=== PATIENT | female | born 1955 | race Caucasian/White ===

== ENCOUNTER → 2020-04-29 13:17 | Outpatient (BNVA) | payer MEDICARE, OTHER, SELFPAY | PROVIDERS: Family Provider Nurse Practitioner; PCP Nurse Practitioner; Referring Provider Family Medicine; Visit Provider Podiatrist Foot & Ankle Surgery | DX: M79.671 Pain in right foot (principal) | CPT/HCPCS: 73630 ==

== ENCOUNTER 2021-05-20 15:39 | Outpatient (CLI) | payer MEDICARE, OTHER, SELFPAY ==
--- NOTE | 2021-05-20 15:44 | USCV_ITS ---
Yokasta Vazquez Age: 66 Gender: F : 1955 Exam Date: 05/20/2021 15:56 Ordering Phys: Niurka Vega DO Technologist: Exam Location: [facility] – [place], [place] Indication: CHEST PAIN BP: 150 / 80 HR: 82 Rhythm: Sinus Technical Quality: Adequate MEASUREMENTS (Male / Female) Normal Values 2D ECHO LV Diastolic Diameter PLAX 4.6 cm 4.2 - 5.9 / 3.9 - 5.3 cm LV Systolic Diameter PLAX 2.4 cm IVS Diastolic Thickness 0.8 cm 0.6 - 1.0 / 0.6 - 0.9 cm IVS Systolic Thickness 1.7 cm LVPW Diastolic Thickness 1.2 cm 0.6 - 1.0 / 0.6 - 0.9 cm LVPW Systolic Thickness 1.2 cm LVOT Diameter 2.0 cm LV Ejection Fraction 2D Teich 80.2 % LA Diameter 3.7 cm LA Width 3.3 cm LA Height 3.9 cm RA Width 3.0 cm RA Height 4.3 cm Aorta at Sinotubular Diameter 2.4 cm M-MODE LV Diastolic Diameter MM 5.1 cm 4.2 - 5.9 / 3.9 - 5.3 cm LV Systolic Diameter MM 2.7 cm LV Ejection Fraction MM Teich 77.7 % IVS Diastolic Thickness MM 1.2 cm 0.6 - 1.0 / 0.6 - 0.9 cm IVS Systolic Thickness MM 1.7 cm LVPW Diastolic Thickness MM 1.1 cm 0.6 - 1.0 / 0.6 - 0.9 cm LVPW Systolic Thickness MM 1.7 cm RV Diastolic Diameter MM 1.6 cm MV E Point Septal Separation 0.9 cm DOPPLER AV Peak Velocity 150.0 cm/s LVOT Peak Velocity 116.0 cm/s AV Area Cont Eq vti 2.4 cm squared AV Area Cont Eq pk 2.5 cm squared MV Area PHT 5.0 cm squared Mitral E to A Ratio 0.9 MV E' Velocity 42.5 cm/s Mitral E to MV E' Ratio 9.0 Mitral E to LV E' Lateral Ratio 8.8 Mitral E to LV E' Septal Ratio 9.2 TR Peak Velocity 131.3 cm/s TR Peak Gradient 6.9 mmHg TV Peak E Velocity 87.0 cm/s Right Atrial Pressure 3.0 mmHg Pulmonary Artery Systolic Pressu 9.9 mmHg FINDINGS Left Ventricle Normal left ventricular size, systolic function and wall thickness, with no regional wall motion abnormalities. Left ventricular ejection fraction is estimated at 65 %. Normal diastolic function. Right Ventricle Normal right ventricular size and systolic function. Right ventricular systolic pressure 9.9 mmHg. Right Atrium Normal right atrial size. Left Atrium Upper normal left atrial size. Mitral Valve Structurally normal mitral valve. No mitral valve stenosis. Trace mitral valve regurgitation. Aortic Valve Aortic valve not well visualized. No aortic valve stenosis. No aortic valve regurgitation. Tricuspid Valve Tricuspid valve not well visualized. Pulmonic Valve Pulmonic valve not well visualized. No pulmonary valve regurgitation. Pericardium No pericardial effusion. Aorta Normal size aortic root and proximal ascending aorta. Normal sized inferior vena cava. CONCLUSIONS 1. Normal left ventricular size, systolic function and wall thickness, with no regional wall motion abnormalities. Left ventricular ejection fraction is estimated at 65 %. Normal diastolic function. 2. Normal right ventricular size and systolic function. 3. No significant valvular abnormality. 4. Normal pulmonary artery pressure. 5. No prior similar studies to compare. Pao Castillo MD (Electronically Signed) Final Date: 20 May 2021 17:14 S
== END 2021-05-20 15:40 | disposition home or self-care (01) ==
LOC: US 15:42
PROVIDERS: PCP Family Medicine; Visit Provider Family Medicine
DX: R06.09 Other forms of dyspnea (principal); R07.9 Chest pain, unspecified
CPT/HCPCS: 93306

== ENCOUNTER 2022-03-25 10:00 | Outpatient (CLI) | payer MEDICARE, OTHER, SELFPAY ==
--- NOTE | 2022-03-25 10:05 | MM_ITS ---
WS: [id number] BILATERAL SCREENING DIGITAL TOMOSYNTHESIS MAMMOGRAM WITH CAD HISTORY: SCREENING COMPARISON: 03/18/2021, 02/26/2020 Bilateral CC and MLO views with tomosynthesis and synthetic mammography submitted. Computer aided det ection analyzed. Breast composition: There are scattered areas of fibroglandular density. No suspicious masses, microc alcifications or architectural distortion. Benign calcifications in each breast. MM/[id number] IMPRESSION: BI-RADS: 2-Benign FOLLOW UP: 1 Year Follow-up
== END 2022-03-25 10:01 | disposition home or self-care (01) ==
LOC: RAD 10:02
PROVIDERS: PCP Family Medicine; Visit Provider Family Medicine
DX: Z12.31 Encounter for screening mammogram for malignant neoplasm of breast (principal)
CPT/HCPCS: 77063; 77067

== ENCOUNTER → 2022-04-07 10:24 | Outpatient (BNVA) | payer MEDICARE, OTHER, SELFPAY | PROVIDERS: PCP Family Medicine; Visit Provider Nurse Practitioner Family | DX: M17.0 Bilateral primary osteoarthritis of knee (principal) | CPT/HCPCS: 73560; 73565; 99203; 99204 ==

== ENCOUNTER → 2022-06-18 09:33 | Outpatient (BNVA) | payer MEDICARE, OTHER, SELFPAY | PROVIDERS: PCP Family Medicine; Visit Provider Nurse Practitioner Family | DX: M17.0 Bilateral primary osteoarthritis of knee (principal) | CPT/HCPCS: 20610; 99213; J7327 ==

== ENCOUNTER 2022-12-28 11:17 | Observation (INO) | payer MEDICARE, OTHER, SELFPAY ==
[2022-12-23 09:42] VITALS: BMI 35.6
[2022-12-23 10:20] LABS: Basophils % 0.5 %; Eosinophils # 0.2 10^3/uL (0.0-0.8); Hematocrit 40.5 % (37.0-47.0); Hemoglobin 13.5 g/dL (11.5-15.3); Lymphocytes # 1.4 10^3/uL (0.8-4.8); Lymphocytes % 37.9 %; Mean Corpuscular HGB Conc 33.3 g/dL (30.0-36.0); Mean Platelet Volume 10.1 fL (7.4-10.4); Monocytes # 0.4 10^3/uL (0.2-0.9); Monocytes % 10.5 %; Neutrophils # 1.74 10^3/uL (1.8-7.7); Neutrophils % 46.8 %; Nucleated Red Blood Cells % 0 %; Platelet Count 252 10^3/cmm (130-400); Red Cell Distribution Width 13.2 % (12.1-15.1); White Blood Count 3.7 10^3/uL (4.0-10.0)
[2022-12-23 10:47] LABS: Anion Gap 14.9 (5-19); Blood Urea Nitrogen 12 mg/dL (8-23); Calcium 9.5 mg/dL (8.5-10.5); Carbon Dioxide 23 mmol/L (22-29); Chloride 105 mmol/L (98-107); Creatinine Clr Calc Pharmacy 70.4961; Glomerular Filtration Rate 83.5 mL/min (90-130); Glucose 95 mg/dL (65-115); Osmolality Calculated 288 mOsm/kg (285-295); Potassium 3.9 mmol/L (3.5-5.1); Sodium 139 mmol/L (136-145)
--- NOTE | 2022-12-24 09:15 | P.ANESASSM_ITS ---
Pre-Anesthetic Assessment Height/Weight: Height 1.57 m Weight 88.451 kg Operation Date: 12/28/22 11:05 Proposed Procedures p Laparoscopic Assist Vaginal Hysterectomy(Not Applicable) - Mehreen Batista MD s Anterior Repair(Not Applicable) - Mehreen Batista MD s Posterior Repair(Not Applicable) - Mehreen Batista MD s [Laparoscopic assisted vaginal hysterectomy, bilateral salpingo-oophorectomy 96590, anterior and posterior colporrhaphy 26637, possible sling 16430 ], N81.4(Not Applicable) - Mehreen Batista MD Familial anesthetic complications: Alpha-GAL Was Beta Devin taken within 24 hours: N/A Was Clonidine taken within 24 hours: N/A Social Alcohol (Daily) and No tobacco Exam alert, oriented x 3, clear to auscultation bilaterally and regular rate & rhythm Airway Submandibular: within normal limits Cervical ROM: within normal limits Mallampati: Class II Dentition: full Pulmonary Sleep Apnea CV/HEM Hypertension Metabolic Morbid Obesity [facility] [place] Osteoarthritis/DJD Anesthetic Plan ASA status: 3 Anesthesia: General Medications/Allergies Home Medications Medication Instructions Recorded Confirmed Last Taken Type CUSTOM ORTHOTICS MOLDED INSERTS #1 ea 04/29/20 12/23/22 Unknown Rx cetirizine 10 mg capsule (Zyrtec) 10 mg PO 04/29/20 12/23/22 1 Day Ago History ~12/22/22 diclofenac sodium 1 % topical gel 2 gm topical QID #100 grams 04/29/20 12/23/22 1 Day Ago Rx (Voltaren) ~12/22/22 telmisartan 80 mg tablet (Micardis) 80 mg PO DAILY 04/29/20 12/23/22 1 Day Ago History ~12/22/22 CPAP 10/04/22 12/23/22 Unknown History Allergies Allergy/AdvReac Type Severity Reaction Status Date / Time Beef Containing Products Allergy Severe ALGY-Anaphy Verified 12/23/22 09:37 laxis pork derived (porcine) Allergy Severe ALGY-Anaphy Verified 12/23/22 09:37 laxis [facility] Anesthesia Medical History History of allergic rhinitis History of hepatitis C treatment in 2007 Hypertension Hypertension Hypothyroidism Inflammatory arthritis Osteopenia Surgical History History of abdominal surgery History of cataract surgery History of hand surgery History of refractive surgery Hx of hemorrhoidectomy Hx of hernia repair Family History Other CAD (coronary artery disease) Hypertension Denies family history of Colon cancer Ovarian cancer Diabetes Hypercholesteremia Breast cancer Uterine cancer Thyroid disease Stroke Social History Substance/Drug Use: never Data Anesthesia 12/23/22 10:00 12/23/22 10:00 Short CBC 12/23/22 Range/Units 10:00 WBC 3.7 L (4.0-10.0) 10^3/uL Hgb 13.5 (11.5-15.3) g/dL Hct 40.5 (37.0-47.0) % MCV 90.0 (81-99) fl Plt Count 252 (130-400) 10^3/cmm Neut % (Auto) 46.8 % Neut # (Auto) 1.74 L (1.8-7.7) 10^3/uL BMP 12/23/22 10:00 Sodium 139 Potassium 3.9 Chloride 105 Carbon Dioxide 23 BUN 12 Creatinine 0.7 Glucose 95 Calcium 9.5 Blood Bank 12/23/22 10:00 Blood Type O Positive Rho(D) Type Positive Antibody Screen Negative Cardiac Studies: Echocardiogram 05/20/21
[2022-12-28] VITALS (14 sets, daily range): BP systolic 118–161; BP diastolic 68–86; PULSE 69–82; RESP 15–25; TEMP 36.1–36.9; O2SAT 90–98
[2022-12-28] MEDS: acetaminophen 1,000 MG/100 ML PIGGYBACK 400 MG IV (06:20)
[2022-12-28] MEDS: phenazopyridine 100 mg Tablet 200 MG PO ×3 (06:20→21:44)
[2022-12-28] MEDS: scopolamine 1.5 Patch 1 PATCH TRANSDERMA (06:21)
[2022-12-28] MEDS: sodium chloride 0.9% 1,000 ML 30 ML IV (06:21)
--- NOTE | 2022-12-28 06:45 | P.ANESUD_ITS ---
Pre-Anesthetic Update Pre-Anesthetic Assessment: Date of Surgery/Procedure: 12/28/22 Preop Rissa gnosis: uterine prolapse, rectocele, cystocele, stress incontinence Proposed Procedure: Operation Date: 12/28/22 07:00 Proposed Procedures p Laparoscopic Assist Vaginal Hysterectomy(Not Applicable) - Mehreen Batista MD s Anterior Repair(Not Applicable) - Mehreen Batista MD s Posterior Repair(Not Applicable) - Mehreen Batista MD s [Laparoscopic assisted vaginal hysterectomy, bilateral salpingo-oophorectomy 02982, anterior and posterior colporrhaphy 88818, possible sling 92977 ], N81.4(Not Applicable) - Mehreen Batista MD Any changes to Pre-Anesthetic Assessment?: No Last Intake: Intake Last Liquid Date 12/27/22 Last Liquid Time 20:00 Last Solid Date 12/27/22 Last Solid Time 18:00 Vitals: Temperature 97.5 F L 12/28/22 05:51 Temperature Source Temporal Artery S can 12/28/22 05:51 Pulse Rate 72 12/28/22 05:51 Pulse Rhythm Regular 12/28/22 06:16 Pulse Strength 3+ Normal 12/28/22 06:16 Respiratory Rate 18 12/28/22 05:51 Blood Pressure 161/86 12/28/22 05:51 Blood Pressure Dasia n 111 12/28/22 05:51 Pulse Oximetry 94 12/28/22 05:51 Oxygen Delivery Me thod Room Air, CPAP 12/28/22 06:16 Exam: Pre-Anes Outpt Exam: alert, oriented x 3, clear to auscultation bilaterally and regular rate & rhythm Cardiac Studies: Echocardiogram 05/20/21
[2022-12-28] MEDS: ceFAZolin 2,000 MG in sodium chloride 0.9% (plus) 50 ML 100 MG IV ×3 (07:01→23:07)
--- NOTE | 2022-12-28 07:01 | W.PM.OPSUD ---
Surgery/Procedure H&P Update DATE OF PROCEDURE: December 28, 2022 DATE H&P PERFORMED: 12/23/22 H&P UPDATE INFORMATION: I have reviewed H&P completed within last 30 days, I have examined patient prior to procedure and No changes to prior documentation PREOP DIAGNOSIS: uterine prolapse, rectocele, cystocele, stress incontinence PLANNED PROCEDURE: Operation Date: 12/28/22 07:00 Proposed Procedures p Laparoscopic Assist Vaginal Hysterectomy(Not Applicable) - Mehreen Batista MD s Anterior Repair(Not Applicable) - Mehreen Batista MD s Posterior Repair(Not Applicable) - Mehreen Batista MD s [Laparoscopic assisted vaginal hysterectomy, bilateral salpingo-oophorectomy 33762, anterior and posterior colporrhaphy 94757, possible sling 57361 ], N81.4(Not Applicable) - Mehreen Batista MD Related Problem List Diagnoses (1) Rectocele: (2) Cystocele: (3) Uterine prolapse:
[2022-12-28] MEDS: vasopressin 20 unit/mL INJ INJECTION (09:11)
[2022-12-28 09:44] LABS: Urine Appearance Clear (CLEAR); Urine Color Orange (Yellow)
[2022-12-28 09:45] LABS: Add Urine Microscopic? YES; Bilirubin Urine 1+ (Negative); Blood Urine Neg (Negative); Glucose Urine UA Norm (Normal); Ketones Urine Negative (Negative); Leukocyte Esterase Urine Negative (Negative); Nitrate Urine Positive (Negative); Protein Urine 2+ (Negative); Urobilinogen Urine 1 mg/dL (Negative); pH Urine 5 (5-7)
[2022-12-28 09:51] LABS: Bacteria Urine TRACE /hpf; Mucus Urine TRACE /hpf; RBC Urine 0-4 /hpf (0-2); Squamous Epithelial Cell Urine 0-4 /hpf (0-5); WBC Urine 0-4 /hpf (0-5)
[2022-12-28 09:52] LABS: Add Urine Culture? No
--- NOTE | 2022-12-28 10:47 | P.OP_ITS ---
Operative Report Date of procedure: December 28, 2022 Pre-op diagnosis: Preop Diagnosis uterine prolapse, rectocele, cystocele, stress incontinence Post-op diagnosis: same Post-op findings: Small uterus. Grade 1 cystocele. Grade 3 rectocele. Normal appearing tubes and cystic ovaries Procedure done: LAVH, BSO, posterior repair, cystoscopy Specimens removed/disposition: uterus, tubes, ovaries to pathology Surgeon: Mehreen Batista Anesthesia: General Estimated blood loss (mL): 50 IV fluids (mL): 1,400 Urine output (mL): 400 Complications: none Findings: grade 3 uterine prolapse, grade 1 cystocele, grade 3 rectocele. Condition: stable Disposition: PACU Procedure: The patient was taken to the operating room where general anesthesia was administered and found to be adequate. She was prepped and draped in the normal sterile fashion in the dorsal lithotomy position in [facility]. A Delacruz catheter was placed. A weighted speculum was placed into the vagina and the anterior lip of the cervix was grasped with a single tooth tenaculum. The Zumi uterine manipulator was placed. The weighted speculum was removed. The gloves were changed and attention was turned to the abdomen. A 5 mm Supraumbilical incision was made. Using a 5 mm port with the camera, the port was placed into the abdomen. The abdomen was insufflated. Two low, lateral 5 mm ports were placed on the left and right under direct visualization from the camera. The right tube was grasped and elevated. The ureter was identified and out of range from the cautery. Using the laparoscopic cautery, the infundibulopelvic ligament was cauterized near the ovary. The broad ligament was then cauterized inferior to the tube to the cornua. This was performed the same way on the left. The round ligaments were then ligated bilaterally. Attention was then turned to the vaginal portion of the procedure. The weighted speculum was placed into the vagina. The zumi manipulator was removed. The single tooth tenaculum was removed and replaced with the cyril's tenaculum. 10 mL of dilute Pitressin was injected at the vesicovaginal junction. A circumferential incision was made at the vesicovaginal junction and the vaginal mucosa reflected cephalad. The posterior peritoneum was entered sharply with the Metzenbaum scissors and the long weighted speculum replaced. Using the Asha clamps the uterosacral ligaments were clamped cut and suture- ligated. The anterior peritoneum was entered sharply with the metzenbaum scissors. Then sequentially the uterine arteries and cardinal ligaments were clamped cut and suture-ligated. A single-tooth tenaculum was used to deliver the uterus. The remaining segement of the utero-ovarian ligaments were clamped cut and suture-ligated bilaterally and the specimen was removed. There was good hemostasis with only mild bleeding from the cuff. The peritoneum was closed with a pursestring using 2-0 Vicryl. The vaginal cuff was closed with 0 Vicryl in a running locked pattern incorporating the uterosacral ligaments into the lateral aspects of the vaginal cuff. An allis clamp was placed in the midline of the vaginal mucosa, approximately 2 cm posterior to the cuff. A second allis clamp was placed in the midline of the vaginal mucosa, approximately 3 cm from the introitus. An incision was made in the midline from clamp to clamp. The vaginal mucosa was clamped laterally and the rectocele dissected off of the rectovaginal fascia. The rectocele was packed away and the rectovaginal fascia brought together in the midline with figure of 8 interrupted sutures of O-Vicryl. The packing was removed and the excess vaginal tissue trimmed. The incision was repaired with 0-Vicryl in a running fashion. Attention was then turned to the perineorrhphy. Allis clamps were placed on the posterior fourchette. A 3 cm wedge of the fourchette was removed. This was repaired in the usual fashion with O-vicryl. The Delarcuz catheter was removed and the cystoscope advanced into the bladder. The patient was given pyridium in pre-op and bilateral spill was noted. There were no injuries or deficits noted in the bladder. The cystoscope was removed and the Delacruz was replaced. Vaginal packing was placed for good hemostasis. The gloves and gowns were changed and attention was turned to the abdomen. The ports were closed with 2-0 monocryl with skin glue. The patient tolerated the procedure well. Sponge lap and needle counts were correct x3. She was taken to the recovery room in stable condition.
[2022-12-28] MEDS: acetaminophen 325 mg Tablet 650 MG PO (11:41)
[2022-12-28] MEDS: dextrose 5%-lactated ringers 1,000 ML 125 ML IV ×2 (11:42→21:43)
--- NOTE | 2022-12-28 13:58 | ANE.PACU2 ---
Inpatient post-anesthesia follow up: Airway intact: Yes Vital signs: Temperature 97.8 F Pulse Rate 74 Respiratory Rate 15 Blood Pressure 118/68 Pulse Oximetry 90 Oxygen Delivery Me thod Nasal Cannula Oxygen Flow Rate 2 Fraction of Inspir ed Oxygen Hydration adequate: Yes Nausea and vomiting: No Pain level: 1 Mental status: Baseline
[2022-12-28] MEDS: HYDROcodone-acetaminophen 5-325 mg Tablet PO ×2 (14:58→23:03)
[2022-12-28] MEDS: simethicone 80 mg Chew PO (21:44)
[2022-12-28] MEDS: cetylpyridinium Lozenge 1 EACH MUCOUS MEM (23:03)
[2022-12-29 05:00] VITALS: BP 108/58; PULSE 74; RESP 18; TEMP 36.9; O2SAT 97
--- NOTE | 2022-12-29 05:51 | PC.NURSE ---
Vaginal packing removed.
[2022-12-29 05:59] LABS: Hematocrit 36.5 % (37.0-47.0); Hemoglobin 11.8 g/dL (11.5-15.3); Mean Corpuscular HGB Conc 32.3 g/dL (30.0-36.0); Mean Corpuscular Hemoglobin 29.4 pg (28.0-34.0); Mean Platelet Volume 10.2 fL (7.4-10.4); Platelet Count 215 10^3/cmm (130-400); Red Blood Count 4.01 10^6/uL (4.1-5.3); Red Cell Distribution Width 13.3 % (12.1-15.1); White Blood Count 7.6 10^3/uL (4.0-10.0)
--- NOTE | 2022-12-29 09:39 | PM.DCS ---
Discharge Providers Date of Admission: 12/28/22 11:17 Date of Discharge: December 29, 2022 Attending Provider at Admission: Mehreen Batista MD Attending Provider at Discharge: Mehreen Batista MD Primary Care Provider: Niurka Vega DO Diagnoses at Discharge Discharge Diagnosis (1) Rectocele: Status: Acute (2) Cystocele: Status: Acute (3) Uterine prolapse: Status: Acute Hospital Course Hospital Course The patient was admitted for surgery. She did well postoperatively and was ready for discharge on day #1. Physical Exam Narrative: The patient is doing well this morning. She has had her catheter and packing removed. Her pain is well controlled. She is tolerating a regular diet. Const: COMMON NORMALS: no acute distress, patient oriented x3, no limitations, alert and well nourished GENERAL APPEARANCE: cooperative, comfortable, well kempt and well developed ORIENTATION/CONSCIOUSNESS: Yes awake, Yes oriented to person, Yes oriented to place and Yes oriented to time Resp: COMMON NORMALS: normal respiratory effort EFFORT & INSPECTION: Yes able to speak in complete sentences GI: COMMON NORMALS: Soft to palpation and non-tender PALPATION: Yes Soft to palpation Extremity: COMMON NORMALS: no calf tenderness Neuro: COMMON NORMALS: patient oriented x3 SENSORIUM/ORIENTATION: Yes alert, Yes oriented to person, Yes oriented to place and Yes oriented to time Psych: APPEARANCE: Yes well kempt Urinary Catheter Management: Delacruz: Cath Placed During This Visit: yes, but has since been removed by the nurse Reason for Continuing Indwelling Catheter: Decision to DC Catheter Urinary Catheter Date of Insertion: 12/28/22 Urinary Catheter Time of Insertion: 08:00 Date Urinary Catheter Removed: 12/29/22 Time Urinary Catheter Discontinued: 05:40 Discharge Data Studies Completed and Pending Pending at discharge Category Date Time Status Pathology: Surgical [PTH] Routine Pth 12/28/22 13:22 Received Laboratory Results WBC 7.6 10^3/uL (4.0-10.0) 12/29/22 05:45 RBC 4.01 10^6/uL (4.1-5.3) L 12/29/22 05:45 Hgb 11.8 g/dL (11.5-15.3) 12/29/22 05:45 Hct 36.5 % (37.0-47.0) L 12/29/22 05:45 MCV 91.0 fl (81-99) 12/29/22 05:45 MCH 29.4 pg (28.0-34.0) 12/29/22 05:45 MCHC 32.3 g/dL (30.0-36.0) 12/29/22 05:45 RDW 13.3 % (12.1-15.1) 12/29/22 05:45 Plt Count 215 10^3/cmm (130-400) 12/29/22 05:45 MPV 10.2 fL (7.4-10.4) 12/29/22 05:45 Neut % (Auto) 46.8 % 12/23/22 10:00 Lymph % (Auto) 37.9 % 12/23/22 10:00 [place] % (Auto) 10.5 % 12/23/22 10:00 Eos % (Auto) 4.0 % 12/23/22 10:00 Baso % (Auto) 0.5 % 12/23/22 10:00 Neut # (Auto) 1.74 10^3/uL (1.8-7.7) L 12/23/22 10:00 Lymph # (Auto) 1.4 10^3/uL (0.8-4.8) 12/23/22 10:00 [place] # (Auto) 0.4 10^3/uL (0.2-0.9) 12/23/22 10:00 Eos # (Auto) 0.2 10^3/uL (0.0-0.8) 12/23/22 10:00 Baso # (Auto) 0.0 10^3/uL (0.0-0.1) 12/23/22 10:00 Nucleated RBC % (auto) 0 % 12/23/22 10:00 Nucleated RBCs # 0.0 /100WBC 12/23/22 10:00 Sodium 139 mmol/L (136-145) 12/23/22 10:00 Potassium 3.9 mmol/L (3.5-5.1) 12/23/22 10:00 Chloride 105 mmol/L (98-107) 12/23/22 10:00 Carbon Dioxide 23 mmol/L (22-29) 12/23/22 10:00 Anion Gap 14.9 (5-19) 12/23/22 10:00 BUN 12 mg/dL (8-23) 12/23/22 10:00 Creatinine 0.7 mg/dL (0.5-0.9) 12/23/22 10:00 GFR Calculation 83.5 mL/min (90-130) L 12/23/22 10:00 Glucose 95 mg/dL (65-115) 12/23/22 10:00 Calculated Osmolality 288 mOsm/kg (285-295) 12/23/22 10:00 Calcium 9.5 mg/dL (8.5-10.5) 12/23/22 10:00 Urine Color [place] (Yellow) 12/28/22 08:01 Urine Appearance Clear (CLEAR) 12/28/22 08:01 Urine pH 5 (5-7) 12/28/22 08:01 Ur Specific [place] 1.020 (1.005-1.030) 12/28/22 08:01 Urine Protein 2+ (Negative) H 12/28/22 08:01 Urine Glucose (UA) Norm (Normal) 12/28/22 08:01 Urine Ketones Negative (Negative) 12/28/22 08:01 Urine Blood Neg (Negative) 12/28/22 08:01 Urine Nitrate Positive (Negative) H 12/28/22 08:01 Urine Bilirubin 1+ (Negative) H 12/28/22 08:01 Urine Urobilinogen 1 mg/dL (Negative) H 12/28/22 08:01 Ur Leukocyte Esterase Negative (Negative) 12/28/22 08:01 Urine RBC 0-4 /hpf (0-2) H 12/28/22 08:01 Urine WBC 0-4 /hpf (0-5) H 12/28/22 08:01 Ur Squamous Epith Cells 0-4 /hpf (0-5) H 12/28/22 08:01 Amorphous Sediment Not Reportable 12/28/22 08:01 Urine Bacteria Trace /hpf (NONE) 12/28/22 08:01 Urine Mucus Trace /hpf 12/28/22 08:01 Blood Type O Positive 12/28/22 06:19 Rho(D) Type Positive 12/28/22 06:19 Antibody Screen Negative 12/28/22 06:19 Vitals Last Vital Signs Temp 98.4 F 12/29/22 05:00 Pulse 74 12/29/22 05:00 Resp 18 12/29/22 05:00 BP 108/58 12/29/22 05:00 Pulse Ox 97 12/29/22 05:00 O2 Del Method Room Air 12/29/22 05:00 O2 Flow Rate 2 12/28/22 16:35 Discharge Plan Discharge Patient Disposition: Home Condition: Stable Prescriptions: New ibuprofen 800 mg Tablet 800 mg PO Q8H Qty: 30 0RF hydrocodone-acetaminophen 5-325 mg Tablet 1 tab PO Q4H PRN (Reason: Moderate To Severe Pain) Qty: 30 0RF Colace 100 mg capsule 100 mg PO BID Qty: 60 0RF Continued telmisartan [Micardis] 80 mg tablet 80 mg PO DAILY Zyrtec 10 mg capsule 10 mg PO DAILY (DME) CUSTOM ORTHOTICS MOLDED INSERTS See Rx Instructions .Route .MEDSUPPLY Qty: 1 0RF Rx Instructions: As directed diclofenac sodium [Voltaren] 1 % gel 2 gm TOPICAL QID Qty: 100 0RF Rx Instructions: apply to both feet daily (DME) CPAP Device See Rx Instructions .Route Rx Instructions: As directed Discharge Orders: Discharge Order (Routine); Ordered 12/29/22 Ordered By: Mehreen Batista Referrals: Mehreen Batista MD [Physician] - 01/03/23 8:45 am (Your 6 week post operative appointment with Dr. Batista victor m be February 07, 2023 at 11:15 a.m.) Patient Instructions: Hydrocodone/Acetaminophen (By mouth), Laparoscopic Hysterectomy (GEN), OB Abdominal Surgery - [facility], OB Discharge Report, OB Laproscopic Surgery - C, OB Food/Drug Interaction Guide, Opioid Safety Discharge Attestations Time Spent in Discharge Care*: less than 30 min Quality Metrics Clinical Quality Measures [ No reported AMI, CVA or VTE this stay] Coding Level of Care Code Acute Code for Chg Fwd Diagnoses Rectocele N81.6 Cystocele Uterine prolapse N81.4
[2022-12-29 10:00] VITALS: BP 112/72; PULSE 70; RESP 16; TEMP 36.7; O2SAT 97
[2022-12-29 10:09] VITALS: BP 112/72; PULSE 70; RESP 16; TEMP 36.7; O2SAT 97
== END 2022-12-29 10:10 | disposition home or self-care (01) ==
LOC: OBGYN 11:17
PROVIDERS: Admitting Provider Obstetrics & Gynecology; PCP Family Medicine; Visit Provider Obstetrics & Gynecology
PROC: 0UT9FZZ Resection of Uterus, Via Natural or Artificial Opening With Percutaneous Endoscopic Assistance (ICD-10-PCS; CPT 57260; principal; 2022-12-28 07:00)
PROC: 0JQC0ZZ Repair Pelvic Region Subcutaneous Tissue and Fascia, Open Approach (ICD-10-PCS; CPT 57240; 2022-12-28 07:00)
PROC: (CPT 57250; 2022-12-28 07:00)
PROC: (CPT 57288; 2022-12-28 07:00)
PROC: 0TJB8ZZ Inspection of Bladder, Via Natural or Artificial Opening Endoscopic (ICD-10-PCS; CPT 52000; 2022-12-28 07:00)
DX: N81.4 Uterovaginal prolapse, unspecified (principal); N81.6 Rectocele; N39.3 Stress incontinence (female) (male); G47.30 Sleep apnea, unspecified; E66.01 Morbid (severe) obesity due to excess calories; Z68.35 Body mass index [BMI] 35.0-35.9, adult; I10 Essential (primary) hypertension; E03.9 Hypothyroidism, unspecified
CPT/HCPCS: 57260; 58552; 36415; 80048; 81001; 85025; 85027; 86850; 86900; 87086; 88305; G0378; J0131; J0690; J1100; J1940; J2370; J2405; J2704; J3010; J3490; J7030; J7121

== ENCOUNTER → 2023-02-07 08:42 | Outpatient (BNVA) | payer MEDICARE, OTHER, SELFPAY | PROVIDERS: PCP Family Medicine; Visit Provider Nurse Practitioner Family | DX: M17.0 Bilateral primary osteoarthritis of knee (principal) | CPT/HCPCS: 20610; 99213; J7327 ==

== ENCOUNTER → 2023-02-14 07:58 | Outpatient (BNVA) | payer MEDICARE, OTHER, SELFPAY | PROVIDERS: PCP Family Medicine; Visit Provider Podiatrist Foot & Ankle Surgery | DX: M19.072 Primary osteoarthritis, left ankle and foot; M19.071 Primary osteoarthritis, right ankle and foot; M21.611 Bunion of right foot; M21.41 Flat foot [pes planus] (acquired), right foot; M21.42 Flat foot [pes planus] (acquired), left foot; M20.40 Other hammer toe(s) (acquired), unspecified foot | CPT/HCPCS: 73630; 99214 ==

== ENCOUNTER 2023-04-04 10:58 | Outpatient (CLI) | payer MEDICARE, OTHER, SELFPAY ==
--- NOTE | 2023-04-04 11:34 | MM_ITS ---
WS: [id number] BILATERAL SCREENING DIGITAL TOMOSYNTHESIS MAMMOGRAM WITH CAD HISTORY: SCREEN COMPARISON: 03/25/2022 and 03/18/2021 and 02/26/2020 Bilateral CC and MLO views with tomosynthesis and synthetic mammography submitted. Computer aided det ection analyzed. Breast composition: There are scattered areas of fibroglandular density. No suspicious masses, microc alcifications or architectural distortion. Benign scattered calcifications in each breast. IMPRESSION: MM/[place] [id number] BI-RADS: 2-Benign FOLLOW UP: 1 Year Follow-up
== END 2023-04-04 10:59 | disposition home or self-care (01) ==
PROVIDERS: PCP Family Medicine; Visit Provider Family Medicine
DX: Z12.31 Encounter for screening mammogram for malignant neoplasm of breast (principal)
CPT/HCPCS: 77063; 77067

== ENCOUNTER → 2023-04-12 10:20 | Outpatient (BNVA) | payer MEDICARE, OTHER, SELFPAY | PROVIDERS: PCP Family Medicine; Visit Provider Internal Medicine Cardiovascular Disease | DX: I48.92 Unspecified atrial flutter; R06.02 Shortness of breath; R00.2 Palpitations; Z99.89 Dependence on other enabling machines and devices; M17.0 Bilateral primary osteoarthritis of knee; E03.9 Hypothyroidism, unspecified; I10 Essential (primary) hypertension; R94.31 Abnormal electrocardiogram [ECG] [EKG] | CPT/HCPCS: 93005; 99204 ==

== ENCOUNTER → 2023-05-05 08:41 | Outpatient (BNVA) | payer MEDICARE, OTHER, SELFPAY | PROVIDERS: PCP Family Medicine; Visit Provider Internal Medicine Cardiovascular Disease | DX: R00.2 Palpitations (principal); I47.19 Other supraventricular tachycardia; I49.3 Ventricular premature depolarization; I49.1 Atrial premature depolarization | CPT/HCPCS: 93242 ==

== ENCOUNTER 2023-05-12 12:31 | Outpatient (CLI) | payer MEDICARE, OTHER, SELFPAY ==
--- NOTE | 2023-05-12 | ECG_ITS ---
[facility] Test Date: 2023-05-12 Pat Name: Yokasta Vazquez Department: Room: Gender: Female Data Conversion Operator: Martha Blas : 1955 Requested By: Pao Castillo Order Number: [id number] Kirit MD: Clifton Gotti M.D. Interpretive Statements NAME OF STUDY: TREADMILL STRESS ECHOCARDIOGRAM INDICATION: Exertional Fatigue, PROCEDURE: The baseline electrocardiogram showed normal sinus rhythm with normal ST-Ts. At the baseline, the patient's blood pressure was 171/77 mm Hg with a heart rate of 82. The patient exercised for 4 minutes and 37 seconds on a standard Matt protocol. Patient attained a maximum heart rate of 139 beats per minute(91% of the maximum predicted heart rate) with a blood pressure at the peak exercise of 204/78 mm Hg. The EKG at the peak exercise revealed no significant changes. Patient did not have any chest pain or any significant arrhythmis with the exercise Echocardiographic pictures were taken at the baseline, peak exercise and During the recovery phase. Blood pressure at the end of the recovery phase was 151/55 mm Hg with a heart rate of 81 per minute. CONCLUSION: 1. No significant EKG changes with the treadmill exercise 2. No exercise-induced chest pain or cardiac arrhythmia 3. Slightly impaired exercise tolerance, attained a maximum of 7.0 METs; maximum VO2 was 24.5 4. Hypertensive response to exercise 5. For the echocardiogram response to exercise, please refer to the separate report Electronically Signed On 05-14-2023 13:21:01 [employer] by Clifton Gotti M.D. [email or web address]
--- NOTE | 2023-05-12 12:54 | USCV_ITS ---
Yokasta Vazquez Age: 68 Gender: F : 1955 Exam Date: 05/12/2023 13:27 Ordering Phys: Pao Castillo MD ([email or web address]) Technologist: Dean Tian Exam Location: [facility] [place] Indication: Exertional Fatigue Rhythm: Sinus Patient History: Htn Cardiac Medications: Telemisartan 80mg Daily Medications in past 24 hours: Yes Contrast: Stress Results Protocol: Matt Total dose(mL): Exercise Duration (min:sec): 4:37 METS: 7 Resting HR: 75 Resting BP: 171 / 75 Peak HR: 139 Peak BP: 204 / 80 Max Predicted HR: 152 91 % Max Predicted HR Target HR: 129 Double Product: 37859 Stress Summary: The patient's target heart rate was achieved BP Response: Normal Reason for Termination: Reached target heart rate or work-load Cardiac Symptoms: Short of Breath ECG Analysis Resting ECG: Please refer to the separate report Stress ECG: Please refer to the separate report Arrhythmia: Please refer to the separate report MEASUREMENTS (Male/Female) Normal Values FINDINGS The baseline echocardiogram revealed normal LV size and ejection fraction. The left atrial size appears to be normal. No pericardial effusion. Segmental wall motion analysis revealed no gross wall motion normalities. With the peak exercise, there was good augmentation of all the segments with no exercise-induced wall motion abnormalities During the recovery phase, the segmental wall motion returned to the baseline CONCLUSIONS 1. Normal echocardiographic response to exercise 2. Low probability for coronary ischemia, based on the above finding 3. See separate report for the EKG response to exercise Dr Clifton Gotti MD FACC (Electronically Signed) Final Date: 13 May 2023 11:14 S
[2023-05-12 12:58] VITALS: BMI 35.1
[2023-05-12 13:43] VITALS: BP 151/55; PULSE 84
== END 2023-05-12 12:32 | disposition home or self-care (01) ==
LOC: CDL 12:32
PROVIDERS: PCP Family Medicine; Visit Provider Internal Medicine Cardiovascular Disease
DX: R06.02 Shortness of breath (principal); I10 Essential (primary) hypertension
CPT/HCPCS: 93017; 93350

== ENCOUNTER → 2023-06-06 07:41 | Outpatient (BNVA) | payer MEDICARE, OTHER, SELFPAY | PROVIDERS: PCP Family Medicine; Visit Provider Podiatrist Foot & Ankle Surgery | DX: M21.41 Flat foot [pes planus] (acquired), right foot; M21.42 Flat foot [pes planus] (acquired), left foot; M20.41 Other hammer toe(s) (acquired), right foot; M19.071 Primary osteoarthritis, right ankle and foot | CPT/HCPCS: 99214 ==

== ENCOUNTER 2023-06-10 07:36 | Day surgery (SDC) | payer MEDICARE, OTHER, SELFPAY ==
[2023-06-10] VITALS (11 sets, daily range): BP systolic 148–191; BP diastolic 71–111; PULSE 78–94; RESP 12–18; TEMP 36.1–36.8; O2SAT 94–100; BMI 35.1
--- NOTE | 2023-06-10 | XR_ITS ---
WS: [id number] Exam: XR foot RT 2V [id number] Date/Time of Exam: 06/10/2023 12:00 AM Reason For Exam: Lapidus bunionectomy Intraoperative AP and lateral images of the RIGHT midfoot are submitted. Plate and screw fixation of the first and second metatarsal cuneiform joints noted. Images obtained for intraoperative visualizat ion.
[2023-06-10] MEDS: sodium chloride 0.9% 1,000 ML 30 ML IV (08:20)
[2023-06-10] MEDS: CELEcoxib 200 mg Capsule 400 MG PO (08:20)
[2023-06-10] MEDS: gabapentin 300 mg Capsule PO (08:26)
--- NOTE | 2023-06-10 09:12 | ANES.PREANE2 ---
Pre-Anesthetic Assessment Height/Weight: Height 1.57 m Weight 87.09 kg Temp Pulse Resp BP Pulse Ox O2 Del Method 98.3 F 86 16 148/86 98 Room Air 06/10/23 08:02 06/10/23 08:02 06/10/23 08:02 06/10/23 08:02 06/10/23 08:02 06/10/23 08:07 Preop Diagnosis: Right pes planus and midfoot arthritis, left bunion. Operation Date: 06/10/23 09:30 Proposed Procedures p Right Lapidus bunionectomy [id number],M21.611,M19.079,M21.41, M79.673(Right) - ZAHRAA Chavarria Right second tarsometatarsal joint fusion(Right) - ZAHRAA Chavarria Isai Osteotomy(Right) - Albert Queen DPM Familial anesthetic complications: H/O difficult intubation Was Beta Devin taken within 24 hours: N/A Was Clonidine taken within 24 hours: N/A Last intake: Intake Last Liquid Date 06/09/23 Last Liquid Time 22:00 Last Solid Date 06/09/23 Last Solid Time 18:30 Social No alcohol and No tobacco Exam alert, oriented x 3, clear to auscultation bilaterally and regular rate & rhythm Airway Submandibular: within normal limits Cervical ROM: within normal limits Mallampati: Class II Dentition: full Pulmonary Chronic Obstructive Pulmonary Disease CV/HEM Hypertension Hepatic Hepatitis (C) Metabolic Thyroid Disease Anesthetic Plan ASA status: 3 Anesthesia: MAC Medications/Allergies Home Medications Medication Instructions Recorded Confirmed Last Taken Type CUSTOM ORTHOTICS MOLDED INSERTS #1 ea 04/29/20 06/06/23 Unknown Rx cetirizine 10 mg capsule (Zyrtec) 10 mg PO DAILY 04/29/20 06/09/23 06/09/23 History telmisartan 80 mg tablet (Micardis) 80 mg PO DAILY 04/29/20 06/09/23 06/09/23 History CPAP 10/04/22 06/06/23 Unknown History Allergies Allergy/AdvReac Type Severity Reaction Status Date / Time Beef Containing Products Allergy Severe ALGY-Anaphy Verified 06/10/23 08:30 laxis pork derived (porcine) Allergy Severe ALGY-Anaphy Verified 06/10/23 08:30 laxis Alpha-Gal Allergy Unknown Unknown Verified 06/10/23 08:30 (Jzflpoqtu-Ycadj-2,3-Gala Current Medications Generic Name Dose Route Start Last Admin Trade Name Juanito PRN Reason Stop Dose Admin Sodium Chloride 1,000 mls @ 30 mls/hr 06/10/23 08:00 06/10/23 08:20 Sodium Chloride 0.9% IV 06/11/23 07:59 30 mls/hr .Q24H PETRONA Administration PFSH Anesthesia Medical History (Updated 06/10/23 @ 09:12 by Edwar Kirkland) Difficult airway for intubation Rectocele Cystocele Uterine prolapse Osteopenia Hypertension History of allergic rhinitis History of hepatitis C treatment in 2007 Hypertension Hypothyroidism Inflammatory arthritis Surgical History History of abdominal surgery History of cataract surgery History of hand surgery Hx of hernia repair Hx of hemorrhoidectomy History of refractive surgery Family History Other CAD (coronary artery disease) Hypertension Denies family history of Colon cancer Ovarian cancer Diabetes Hypercholesteremia Breast cancer Uterine cancer Thyroid disease Stroke Social History Substance/Drug Use: never Data Anesthesia Cardiac Studies: Echocardiogram 05/20/21 Stress Echocardiogram 05/12/23
--- NOTE | 2023-06-10 11:02 | W.PM.OPSUD ---
Surgery/Procedure H&P Update DATE OF PROCEDURE: June 10, 2023 DATE H&P PERFORMED: 06/06/23 H&P UPDATE INFORMATION: I have reviewed H&P completed within last 30 days, I have examined patient prior to procedure, No changes to prior documentation and H[place] in [facility] [place] date indicated PREOP DIAGNOSIS: Right pes planus and midfoot arthritis, left bunion. PRIMARY INDICATION FOR PROCEDURE: Right bunion. Right midfoot arthritis, right hallux valgus, right foot pain PLANNED PROCEDURE: Operation Date: 06/10/23 09:30 Proposed Procedures p Right Lapidus bunionectomy [id number],M21.611,M19.079,M21.41, M79.673(Right) - ZAHRAA Chavarria Right second tarsometatarsal joint fusion(Right) - ZAHRAA Chavarria Isai Osteotomy(Right) - Albert Queen DPM
[2023-06-10] MEDS: ceFAZolin 2,000 MG in sodium chloride 0.9% (plus) 50 ML 100 MG IV (11:29)
[2023-06-10] MEDS: lidocaine 2% INJ 20 mL (11:50)
[2023-06-10] MEDS: BUPivacaine 0.5% INJ 30 mL (11:50)
--- NOTE | 2023-06-10 12:59 | P.BOP_ITS ---
Date of Procedure: 06/10/23 Surgeon: Albert Queen DPM Foreign Car Mechanic(s): Anisa Cuevas Procedure(s) performed: Right Lapidus and second tarsometatarsal joint fusion all right foot. Right silver bunionectomy with lateral release. Findings of the procedure(s): None Estimated blood loss: 5 mL Specimen(s) removed: None Post-operative diagnosis: Right bunion. Right second tarsometatarsal joint Art hritis No complications with surgery or anesthesia.
--- NOTE | 2023-06-10 13:01 | PM.OP ---
Operative Report Date of procedure: June 10, 2023 Pre-op diagnosis: Right bunion Right midfoot arthritis Right hallux valgus Right foot pain Post-op diagnosis: Same Procedure done: Right Lapidus bunionectomy. CPT code 95009 Right second tarsometatarsal joint fusion. CPT code 63015 Implants: [place] Lapidus plate, [place] straight slanted plate 4 mm homerun screw 3.5 millimeter screws 2.7 millimeter screws 3-0 Vicryl, 4-0 Vicryl, 4-0 nylon Specimens removed/disposition: None Pathology: None Surgeon: Albert Queen DPM Molder Offbearer: See intraoperative documentation Estimated blood loss: 5 mL see intraoperative documentation IV fluids: None Urine output: None Complications: None Brief History: Patient examined and evaluated, findings and treatment options discussed with patient at length. She has a complaint of a painful bunion to the right foot. X-ray right foot 3 view shows increased first intermetatarsal angle, this was taken at today's visit. Also hallux valgus appreciated. 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 She has exhausted conservative measures consisting of activity modifications, supportive shoes, wide accommodative shoes, topical and oral anti-inflammatories as well as orthotics and daily stretching, spacers and padding. Discussed Lapidus bunionectomy, possible Isai and second tarsometatarsal joint fusion. She would like to have this scheduled for June 10, 2023 we will follow-up for preoperative consultation with her early June with plans for surgical intervention on June 10, 2023. I reviewed at length with the patient, the risks, potential complications, benefits, alternatives, expectations, and typical outcomes associated with the surgery. The risks and potential complications were explained in detail, including but not limited to infection, wound dehiscence or soft tissue complications, bleeding and hematoma, chronic edema, neuritis or nerve damage producing numbness or chronic pain, CRPS, failure to relieve pain or worsening pain, thick / painful / unsightly scar, limited motion / stiffness, malposition, delayed union, malunion, or nonunion, fracture, reaction to implants, anesthetic complications, venous thromboembolism, and deformity recurrence. I discussed the notion of no regrets with the patient as it pertains to complications and outcomes. The patient seemed to understand the nature of the proposed care and required convalescence. They asked appropriate questions, answered to their satisfaction. They are aware no guarantees can be made as to a satisfactory outcome and they understand there may be other possible unforeseen complications or outcomes not listed here that will be treated accordingly if they arise. There were no written or implied guarantees given to the patient. They gave informed consent to proceed.
[2023-06-10] MEDS: hyDRALAzine 20 mg/mL INJ 1 mL 10 MG IVP (13:09)
[2023-06-10] MEDS: HYDROcodone-acetaminophen 5-325 mg Tablet 2 TAB PO (13:49)
--- NOTE | 2023-06-10 14:42 | ANE.PACU2 ---
Inpatient post-anesthesia follow up: Airway intact: Yes Vital signs: Temperature 97.0 F Pulse Rate 87 Respiratory Rate 18 Blood Pressure 160/94 Pulse Oximetry 99 Oxygen Delivery Me thod Room Air Oxygen Flow Rate 6 Fraction of Inspir ed Oxygen Hydration adequate: Yes Nausea and vomiting: No Pain level: 2 Mental status: Baseline
== END 2023-06-10 14:14 | disposition home or self-care (01) ==
PROVIDERS: PCP Family Medicine; Visit Provider Podiatrist Foot & Ankle Surgery
PROC: (CPT 28297; principal; 2023-06-10 09:20)
PROC: (CPT 28740; 2023-06-10 09:20)
PROC: (CPT 28298; 2023-06-10 09:20)
DX: M21.611 Bunion of right foot (principal); M20.11 Hallux valgus (acquired), right foot; J44.9 Chronic obstructive pulmonary disease, unspecified; I10 Essential (primary) hypertension; Z86.19 Personal history of other infectious and parasitic diseases; E03.8 Other specified hypothyroidism; M19.071 Primary osteoarthritis, right ankle and foot; M20.41 Other hammer toe(s) (acquired), right foot; M21.41 Flat foot [pes planus] (acquired), right foot; M21.42 Flat foot [pes planus] (acquired), left foot
CPT/HCPCS: 28297; 28730; 73620; 76000; C1713; J0360; J0690; J2250; J2704; J3010; J3490; J7030

== ENCOUNTER → 2023-06-23 15:15 | Outpatient (BNVA) | payer MEDICARE, OTHER, SELFPAY | PROVIDERS: PCP Family Medicine; Visit Provider Podiatrist Foot & Ankle Surgery | DX: Z98.890 Other specified postprocedural states (principal); M21.41 Flat foot [pes planus] (acquired), right foot; M21.42 Flat foot [pes planus] (acquired), left foot; M20.41 Other hammer toe(s) (acquired), right foot; M19.071 Primary osteoarthritis, right ankle and foot | CPT/HCPCS: 73630; 99024 ==

== ENCOUNTER → 2023-07-06 13:51 | Outpatient (BNVA) | payer MEDICARE, OTHER, SELFPAY | PROVIDERS: PCP Family Medicine; Visit Provider Podiatrist Foot & Ankle Surgery | DX: Z98.890 Other specified postprocedural states (principal); M21.41 Flat foot [pes planus] (acquired), right foot; M21.42 Flat foot [pes planus] (acquired), left foot; M20.40 Other hammer toe(s) (acquired), unspecified foot; M19.071 Primary osteoarthritis, right ankle and foot | CPT/HCPCS: 73630; 99024 ==

== ENCOUNTER 2023-07-11 10:00 | Outpatient (CLI) | payer MEDICARE, OTHER, SELFPAY | END 2023-07-11 10:01 | disposition home or self-care (01) | LOC: SLEEP 07-12 08:35 | PROVIDERS: PCP Family Medicine; Visit Provider Otolaryngology | DX: G47.33 Obstructive sleep apnea (adult) (pediatric) (principal) | CPT/HCPCS: G0399 ==

== ENCOUNTER → 2023-07-19 12:44 | Outpatient (BNVA) | payer MEDICARE, OTHER, SELFPAY | PROVIDERS: PCP Family Medicine; Visit Provider Nurse Practitioner Family | DX: I10 Essential (primary) hypertension (principal); R00.2 Palpitations | CPT/HCPCS: 99214 ==

== ENCOUNTER → 2023-07-21 13:33 | Outpatient (BNVA) | payer MEDICARE, OTHER, SELFPAY | PROVIDERS: PCP Family Medicine; Visit Provider Podiatrist Foot & Ankle Surgery | DX: Z98.890 Other specified postprocedural states (principal) | CPT/HCPCS: 73630; 99024 ==

== ENCOUNTER → 2023-08-18 13:42 | Outpatient (BNVA) | payer MEDICARE, OTHER, SELFPAY | PROVIDERS: PCP Family Medicine; Visit Provider Podiatrist Foot & Ankle Surgery | DX: Z98.890 Other specified postprocedural states (principal) | CPT/HCPCS: 73630; 99024 ==

== ENCOUNTER → 2023-09-19 09:09 | Outpatient (BNVA) | payer MEDICARE, OTHER, SELFPAY | PROVIDERS: PCP Family Medicine; Visit Provider Nurse Practitioner | DX: M17.0 Bilateral primary osteoarthritis of knee (principal); M25.561 Pain in right knee; Z01.818 Encounter for other preprocedural examination; M25.562 Pain in left knee; Z71.89 Other specified counseling | CPT/HCPCS: 20610; 73560; 73565; 99214; J7327 ==

== ENCOUNTER → 2024-01-02 07:54 | Outpatient (BNVA) | payer MEDICARE, OTHER, SELFPAY | PROVIDERS: PCP Family Medicine; Visit Provider Nurse Practitioner | DX: M17.0 Bilateral primary osteoarthritis of knee (principal); Z01.818 Encounter for other preprocedural examination; Z71.89 Other specified counseling | CPT/HCPCS: 80053; 81003; 85025; 99214 ==

== ENCOUNTER 2024-01-09 13:10 | Outpatient (CLI) | payer MEDICARE, OTHER, SELFPAY ==
--- NOTE | 2024-01-09 14:30 | CT_ITS ---
WS: [id number] CT LEFT KNEE, NONCONTRAST [facility] TECHNIQUE: Noncontrast CT of the LEFT knee to include the LEFT hip and ankle. CLINICAL INFORMATION: [facility] PROTOCOL DLP: 1045.[address] scans at [facility] use at least one of these dose optimization techniques: automated e xposure control; mA and/or kV adjustment per patient size (includes targeted exams where dose is matc hed to clinical indication); or iterative reconstruction. FINDINGS: Extensive sigmoid diverticulosis. Moderate degenerative narrowing both hips. Degenerative arthritis s acroiliac joints. Normal pubic rami. Advanced degenerative narrowing medial joint compartment with hypertrophic changes along the joint li ne. Hypertrophic patella. No significant joint effusion. CT/CT knee LT [facility] [id number] IMPRESSION: Images obtained for preoperative purposes.
== END 2024-01-09 13:11 | disposition home or self-care (01) ==
LOC: RAD 13:10
PROVIDERS: PCP Family Medicine; Visit Provider Nurse Practitioner
DX: M17.0 Bilateral primary osteoarthritis of knee (principal); Z01.818 Encounter for other preprocedural examination; M17.12 Unilateral primary osteoarthritis, left knee; M79.4 Hypertrophy of (infrapatellar) fat pad; M16.0 Bilateral primary osteoarthritis of hip; K57.90 Diverticulosis of intestine, part unspecified, without perforation or abscess without bleeding
CPT/HCPCS: 73700; 93005

== ENCOUNTER 2024-01-17 14:44 | Observation (INO) | payer MEDICARE, OTHER, SELFPAY ==
[2024-01-17] VITALS (18 sets, daily range): BP systolic 111–168; BP diastolic 54–101; PULSE 72–88; RESP 14–18; TEMP 36.2–37.2; O2SAT 94–100; BMI 35.1
--- NOTE | 2024-01-17 06:35 | P.ANESASSM_ITS ---
Pre-Anesthetic Assessment Height/Weight: Height 1.57 m Operation Date: 01/17/24 07:50 Proposed Procedures p Roby Robot Total Knee Arthroplasty(Left) - Jodie Kurtz MD Familial anesthetic complications: Difficult to intubate (ended up with red swollen throat surgery with walden) has linh and droopy uvula Was Beta Devin taken within 24 hours: N/A Was Clonidine taken within 24 hours: N/A Last intake: > 8 hrs Social No alcohol and No tobacco Exam alert, oriented x 3, clear to auscultation bilaterally and regular rate & rhythm Airway Mallampati: Class II Dentition: other (crowns) Pulmonary Sleep Apnea CV/HEM Hypertension Hepatic hx hep c Metabolic Thyroid Disease Anesthetic Plan ASA status: 3 Anesthesia: Regional (specify below) Risk of > 500 ml blood loss (7ml/kg in children): No Medications/Allergies Home Medications Medication Instructions Recorded Confirmed Last Taken Type CUSTOM ORTHOTICS MOLDED INSERTS #1 ea 04/29/20 01/09/24 Unknown Rx cetirizine 10 mg capsule (Zyrtec) 10 mg PO DAILY 04/29/20 01/16/24 01/16/24 20:00 History telmisartan 80 mg tablet (Micardis) 80 mg PO DAILY 04/29/20 01/16/24 01/16/24 20:00 History CPAP 10/04/22 01/09/24 Unknown History Allergies Allergy/AdvReac Type Severity Reaction Status Date / Time Beef Containing Products Allergy Severe ALGY-Anaphy Verified 01/09/24 11:09 laxis pork derived (porcine) Allergy Severe ALGY-Anaphy Verified 01/09/24 11:09 laxis Alpha-Gal Allergy Unknown Unknown Verified 01/09/24 11:09 (Qhybdiihg-Enncc-8,3-Gala [facility] Anesthesia Medical History Primary osteoarthritis of left knee Difficult airway for intubation Rectocele Cystocele Uterine prolapse Osteopenia Hypertension History of allergic rhinitis History of hepatitis C treatment in 2007 Hypertension Hypothyroidism Inflammatory arthritis Surgical History History of abdominal surgery History of cataract surgery History of hand surgery Hx of hernia repair Hx of hemorrhoidectomy History of refractive surgery Family History Other CAD (coronary artery disease) Hypertension Denies family history of Colon cancer Ovarian cancer Diabetes Hypercholesteremia Breast cancer Uterine cancer Thyroid disease Stroke Social History Smoking and tobacco/nicotine status: never used tobacco/nicotine Substance/Drug Use: never Data Anesthesia Cardiac Studies: Echocardiogram 05/20/21 Stress Echocardiogram 05/12/23
[2024-01-17] MEDS: acetaminophen 1,000 MG/100 ML PIGGYBACK 400 MG IV ×2 (06:55→17:05)
[2024-01-17] MEDS: sodium chloride 0.9% 1,000 ML 30 ML IV (06:55)
--- NOTE | 2024-01-17 07:10 | P.HPUD_ITS ---
Surgery/Procedure H&P Update DATE OF PROCEDURE: January 17, 2024 DATE H&P PERFORMED: 01/09/24 H&P UPDATE INFORMATION: I have reviewed H&P completed within last 30 days, I have examined patient prior to procedure, No changes to prior documentation and H&P is in [facility] EMR on date indicated PLANNED PROCEDURE: Operation Date: 01/17/24 07:50 Proposed Procedures p Roby Robot Total Knee Arthroplasty(Left) - Jodie Kurtz MD Related Problem List Diagnoses (1) Primary osteoarthritis of left knee:
--- NOTE | 2024-01-17 07:32 | ANES.PROC ---
Anesthesia Procedures Procedure/Date: 01/17/24 Nerve Block ^: Nerve Block 1: Main Anesthesia: spinal anesthesia block Time Out Performed: Yes Consent: requested by attending/covering physician, from patient, from other, risks and benefits reviewed and patient agrees to proceed Nerve block location: adductor canal (L) Anesthesia monitors applied: pulse oximetry, EKG, BP cuff and oxygen Nerve block position: supine Anesthetic Used: ropivicaine 0.5% (30 ml) and with decadron (4 mg) Ultrasound used to: recognize landmarks and visualize and ID femerol nerve Nerve Stimulator Used?: No Interscalene/Femoral BLK: 4 stimuplex 21 g needle used for position and inplane approach, visualize local anesthetic spread and no vascular puncture identified Injection: neg aspiration of heme Patient Tolerated Procedure: well Complications: none
[2024-01-17] MEDS: ceFAZolin 2,000 MG in sodium chloride 0.9% (plus) 50 ML 100 MG IV (08:04)
[2024-01-17] MEDS: tranexamic acid 1,000 mg/10mL SDV 1000 MG IV (08:29)
[2024-01-17] MEDS: BUPivacaine liposome 13.3 mg/mL SDV 20 mL 266 MG INFILTRATI (08:49)
[2024-01-17] MEDS: BUPivacaine 0.5% INJ 30 mL 20 ML XX (08:49)
[2024-01-17] MEDS: ceFAZolin 1,000 mg SDV 2000 MG IRRIGATION (08:50)
[2024-01-17] MEDS: vancomycin 1,000 MG SDV 1000 MG XX (08:50)
--- NOTE | 2024-01-17 10:36 | P.OP_ITS ---
Operative Report Date of procedure: January 17, 2024 Pre-op diagnosis: Severe degenerative osteoarthritis left knee with varus deformity Post-op diagnosis: Severe degenerative osteoarthritis left knee with varus deformity Post-op findings: Slight hyperextension and varus deformity with significant degenerative osteoarthritis and osteophyte formation Procedure done: Left total knee arthroplasty with Roby guidance Implants: The [place] total knee system with a size 2 triathlon beaded cruciate retaining femur left, a triathlon titanium tibial component size 2 beaded, a triathlon X3 tibial bearing CS insert size 2 X 10 mm and a beaded triathlon titanium asymmetric patella size 32 x 10 mm Specimens removed/disposition: Bone, disposed of Pathology: None Surgeon: Jodie Kurtz MD Felt Hat Flanging Operator: Jie Ashford, nurse practitioner, who services were necessary for positioning, exposure, implantation, closure, and completion of the surgical procedure. Anesthesia: Spinal (With MAC, ASA 3) Estimated blood loss (mL): 50 Tourniquet time (min): 0 (Not utilized) IV fluids (mL): 1,200 Urine output (mL): 500 Complications: None Findings: As above Condition: stable Disposition: PACU (Then admitted under observation status for postoperative rehab pain management. and) Brief History: This 68-year-old woman presents today for left total knee arthroplasty. She was seen in the office complaining of severe pain limiting her ambulation and activities of daily living. She had undergone Monovisc and cortisone injections, but she noted that these were no longer helping with her symptoms. At the time of presentation to the office, she was unable to ambulate further than 100 feet without significant discomfort. Risks and complications of surgery were discussed with the patient. Consents were signed and questions were answered at that time. Procedure: The patient was brought to the operating theater, and after undergoing spinal anesthetic, with MAC and with supplemental adductor canal block, ASA 3, the left lower extremity was prepped with Dura-Prep and draped in usual fashion following placement of a tourniquet high on the leg. The leg was then draped free.? Tourniquet was not elevated during the case.? A surgical pause was performed, and at the time of the surgical pause, we confirmed the site and side of surger y. Additionally, we confirmed the appropriate and timely administration of preoperative antibiotics, Ancef 2 g.? The availability of equipment was confirmed, and the patient's identity was verbalized as well. Following the surgical pause, an incision was made centering over the patella continuing proximally and distally as necessary to allow access to the knee joint. Dissection continued through skin and soft tissues using a scalpel. Hemostasis was obtained using electrocautery. The skin incision was followed by a median parapatellar arthrotomy. The leg was extended and the patella was able to be displaced laterally.? Appropriate arrays and markers were placed in appropriate position for use of the Roby.? Preoperative planning had been accomplished and was discussed in detail with the [facility] help desk representative.? Intraoperative mapping of the femur and tibia was accomplished after the arrays were placed.? Internal markers were also placed.? Once we had accomplished the Roby mapping, we began the appropriate resections for placement of the prosthesis.? The plan was for a cruciate retaining right total knee arthroplasty. Once appropriate mapping had been accomplished retraction was established using manual retraction by surgical technicians and also the Roby leg positioner and retractors.? The knee was evaluated.? There was significant osteoarthritic change as well as very minimal flexion contracture as well as varus deformity.? Appropriate bone resection was accomplished using the Roby.? The femur was sized to a size 2.? Following femoral cuts, attention was directed to the tibia.? Osteophytes were removed prior to this portion of the procedure.? We had performed a minimal medial release at the beginning of the procedure to allow for placement of the array.? Proximal tibia was evaluated, and it was felt that appropriate size for the tibia was a size 2.? Tray was noted to fit nicely with good coverage.? Rim fit was accomplished with the size 2. A trial reduction was accomplished after osteophytes have been removed as well as the medial and lateral menisci.? We had removed the anterior cruciate ligament at the beginning of the case and preserved the posterior cruciate ligament.? Trial reduction was accomplished with a size 2 femoral cruciate retaining component, a size 2 tibial tray and a size 2 CS tibial bearing insert which was 10 mm.? Secondary to the balancing of the knee, we elected to place a 10 mm insert for the actual component. Alignment was felt to be appropriate as well.? Trial components were removed after the femur had been drilled.? Prior to removal of the tibial tray which had been pinned in position with appropriate rotation as determined by the Roby plan, we broached the tibia.? Subsequently, the 4 drill holes were made for the prosthetic component.? All trial components were removed, and the wound was irrigated.? Plans were made for insertion of the prosthetic components.? Prior to this, the patella was manually prepared.? After resection of the articular surface with the jogging system, it was measured and measured a 32 mm patella.? We resected approximately 8 mm of patella.? Patellar height was restored with the patellar component. Once again, the wound was irrigated.? The Tritanium tibia was impacted into position.? The beaded femur was then impacted into position in a cementless fashion. The CS tibial insert was placed prior to placement of the femoral component. The patella was pressed into position with a patellar clamp.? Exparel was injected about the components deep and superficially.? The knee was then copiously irrigated with betadine and saline and suctioned dry. Attention was then directed to closure. Closure was accomplished with 0 Vicryl in the fascial tissues.? The suture line of 0 Vicryl was supplemented with strata fix, #1, with a running stitch from proximal to distal and a second running stitch from distal to proximal.? This was followed by Surgiflo and vancomycin powder.? Following this, a 2-0 Monocryl was used in the subcutaneous tissues, and the skin was closed with 3-0 Strata fix.? Care was taken to assure an excellent subcutaneous as well as skin closure.? A sterile dressing was then placed consisting of Dermabond Prineo, OpSite, ABD, sterile soft roll, and an John wrap including over the foot. The patient was returned the Recovery Room in a satisfactory condition. X-rays were obtained and reviewed there.? The patient will be discharged to the floor for postoperative rehabilitation and pain management. Related Problem List Diagnoses (1) Primary osteoarthritis of left knee:
--- NOTE | 2024-01-17 10:53 | XRR_ITS ---
PROCEDURE INFORMATION: Exam: XR Left Knee Exam date and time: 01/17/2024 11:00 AM Age: 68 years old Clinical indication: Device placement; Joint replacement hardware; Prior surgery; Surgery date: Post-operative (0-2 days); Surgery type: Status post left total knee arthroplasty TECHNIQUE: Imaging protocol: Radiologic exam of the left knee. Views: 1 or 2 views. COMPARISON: CT knee LT [facility] [id number] 01/09/2024 1:37 PM FINDINGS: Bones/joints: There are postoperative changes status post left knee replacement. Components appear to be in anatomic alignment. There is air within the joint. Soft tissues: There is air within the soft tissues from recent surgery. XR/XR knee LT 1-2V [id number] IMPRESSION: 1. Postoperative changes status post left knee replacement.
--- NOTE | 2024-01-17 11:25 | ANE.PACU2 ---
Inpatient post-anesthesia follow up: Airway intact: Yes Vital signs: Temperature 97.6 F Pulse Rate 76 Respiratory Rate 18 Blood Pressure 168/92 Pulse Oximetry 97 Oxygen Delivery Me thod Room Air Oxygen Flow Rate 6 Fraction of Inspir ed Oxygen Hydration adequate: Yes Nausea and vomiting: No Pain level: 1 Mental status: Baseline
[2024-01-17] MEDS: oxyCODONE 5 mg IR Tab/Cap 10 MG PO (12:04)
[2024-01-17] MEDS: oxyCODONE 5 mg IR Tab/Cap PO ×2 (17:05→21:10)
[2024-01-17] MEDS: ceFAZolin 2,000 mg SDV 2000 MG IVP (17:06)
[2024-01-17] MEDS: chlorhexidine gluconate 0.12% Btl 473 mL 30 ML MUCOUS MEM ×2 (17:06→21:12)
[2024-01-17] MEDS: mupirocin oint 22 gm 1 APPLIC NASAL (17:06)
[2024-01-17] MEDS: sennosides-docusate Tablet 2 TAB PO (17:06)
[2024-01-17] MEDS: tranexamic acid 1,000 MG/100 ML PREMIX 600 MG IV (17:21)
[2024-01-17] MEDS: water for injection-sterile 20 ML 6 ML (17:38)
[2024-01-18] VITALS (8 sets, daily range): BP systolic 106–164; BP diastolic 58–74; PULSE 70–82; RESP 15–20; TEMP 36.7–36.8; O2SAT 93–99
[2024-01-18] MEDS: oxyCODONE 5 mg IR Tab/Cap PO ×3 (01:23→10:41)
[2024-01-18] MEDS: acetaminophen 1,000 MG/100 ML PIGGYBACK 400 MG IV ×2 (01:24→08:27)
[2024-01-18] MEDS: ceFAZolin 2,000 mg SDV 2000 MG IVP ×2 (01:31→08:27)
[2024-01-18 06:02] LABS: Basophils % 0.3 %; Eosinophils % 0.3 %; Hematocrit 35.4 % (36-47); Lymphocytes # 1.6 10^3/uL (0.8-4.8); Lymphocytes % 22.2 %; Mean Corpuscular HGB Conc 31.9 g/dL (30-55); Mean Corpuscular Hemoglobin 29.1 pg (27-33); Mean Corpuscular Volume 91.2 fl (85-98); Mean Platelet Volume 10.2 fL (7.4-10.4); Neutrophils % 63.1 %; Nucleated Red Blood Cells % 0 %; Platelet Count 235 10^3/cmm (157-399); Red Blood Count 3.88 10^6/uL (3.85-5.65); Red Cell Distribution Width 13.2 % (12.1-15.1); White Blood Count 7.13 10^3/uL (3.29-11.43)
[2024-01-18 06:17] LABS: Blood Urea Nitrogen 10 mg/dL (8-23); Calcium 8.9 mg/dL (8.5-10.5); Carbon Dioxide 23 mmol/L (22-29); Chloride 105 mmol/L (98-107); Glomerular Filtration Rate 83.2 mL/min (90-130); Glucose 135 mg/dL (65-115); Osmolality Calculated 293 mOsm/kg (285-295); Sodium 141 mmol/L (136-145)
[2024-01-18] MEDS: ondansetron 2 mg/ML SDV 2 mL 4 MG IVP (08:24)
[2024-01-18] MEDS: sennosides-docusate Tablet 2 TAB PO (08:26)
[2024-01-18] MEDS: aspirin 325 mg EC Tablet PO (08:26)
[2024-01-18] MEDS: mupirocin oint 22 gm 1 APPLIC NASAL (08:27)
[2024-01-18] MEDS: chlorhexidine gluconate 0.12% Btl 473 mL 30 ML MUCOUS MEM (08:28)
--- NOTE | 2024-01-18 09:45 | PC.CHAP ---
Pastoral Care Encounter/Spiritual Assessment Type of Contact [] Declined construction services technician visit [] Patient/Family/Request visit [] Outpatient visit [] Follow-up visit [] Physician referral [] Code/Alert [x] Routine visit [] Staff referral [] Actively dying [] Patient sleeping [] Family support [] [] Out of room [] Palliative care [] [] Receiving care in room [] Pre-surgical visit [] Trauma [] Long length of stay [] ICU visit [] Other: Relational/Emotional Strength [x] Patient feels connected with others/family/visitors/staff [] Distress [] Loneliness/isolation [] Abandonment Spirituality of Patient [x] Person of Jodee [] Attends Advent of their Jodee [x] Believes in Prayer [] Reads Bible or Jehovah'S Witness materials [] There are Spiritual issues to be addressed Open Tenter Operator Interventions [x] Prayer [x] Active listening [] Non-anxious presence [x] Spiritual/emotional support [] Crisis/trauma care [] Spiritual counseling [] Bereavement support [] Provided bereavement packet [] Provided Bible/devotional materials [] Provided toy/stuffed animal, coloring book to patient or family member [] Provided Communion [] Anointing/[place] [] Salvation [x Completed spiritual assessment [] Other: Impact on Illness or Injury [] Angry [] Fearful [] Anxious [] Often cries [] Exhaustion [] Unable to work [] Unable to attend confucianism [] Unable to walk/stand [] Unable to read [] Unable to drive [] Unable to eat/drink [] Unable to sleep [] Unable to be with family [] Patient intubated [] Other: Summary Time spent with patient 5 min
--- NOTE | 2024-01-18 14:07 | P.DS_ITS ---
Discharge Providers Date of Admission: 01/17/24 14:44 Date of Discharge: January 18, 2024 Attending Provider at Admission: Jodie Kurtz MD Attending Provider at Discharge: Jodie Kurtz MD Consults: None Primary Care Provider: Niurka Vega DO Diagnoses at Discharge Discharge Diagnosis (1) Primary osteoarthritis of left knee: Status: Chronic (2) Status post total left knee replacement using cement: Status: Acute Permanent problem details: Date of procedure: January 17, 2024 Diagnosis: Severe degenerative osteoarthritis left knee with varus deformity Procedure done: Left total knee arthroplasty with Roby guidance Implants: The [facility] total knee system with a size 2 triathlon beaded cruciate retaining femur left, a triathlon titanium tibial component size 2 beaded, a triathlon X3 tibial bearing CS insert size 2 X 10 mm and a beaded triathlon titanium asymmetric patella size 32 x 10 mm Reason for Visit Reason for Visit: M17.12 Brief History: This 68-year-old woman presents today for left total knee arthroplasty. She was seen in the office complaining of severe pain limiting her ambulation and act ivities of daily living. She had undergone Monovisc and cortisone injections, but she noted that these were no longer helping with her symptoms. At the time of presentation to the office, she was unable to ambulate further than 100 feet without significant discomfort. Risks and complications of surgery were discussed with the patient. Consents were signed and questions were answered at that time. Hospital Course Hospital Course This 68-year-old woman presented for same-day surgery in the form of left total knee arthroplasty with Roby guidance. Postoperatively, the patient was admitted to the floor under observation status. She did well and was able to work with therapy. On the first postoperative day, she demonstrated no signs of DVT. She was neurologically intact. And she was ready for discharge home. She was felt to be safe with physical therapy. She will follow-up as previously scheduled. Physical Exam Const: COMMON NORMALS: no acute distress, average body habitus, patient oriented x3 and alert GENERAL APPEARANCE: cooperative and comfortable ORIENTATION/CONSCIOUSNESS: Yes awake HENMT: COMMON NORMALS: normocephalic and atraumatic HEAD & SCALP: normocephalic and atraumatic Eye: GENERAL EYE: appearance normal, both eyes and all related structures Chest: COMMONS NORMALS: normal inspection of the chest Resp: COMMON NORMALS: normal respiratory effort EFFORT & INSPECTION: Yes able to speak in complete sentences and Yes symmetric chest movement Extremity: LEFT LOWER EXTREMITY: Yes knee joint (Large outer dressing is removed.) Left knee: Yes inspection (Minimal drainage on OpSite), Yes ROM (Not evaluated.) and Yes neurovascular exam (Intact distally.) Neuro: COMMON NORMALS: patient oriented x3 SENSORIUM/ORIENTATION: Yes alert Psych: COMMON NORMALS: mental status grossly normal APPEARANCE: Yes grossly normal ATTITUDE: Yes calm and Yes engaged ATTENTION/CONCENTRATION: Yes attention grossly intact Skin: COMMON NORMALS: no rashes or lesions noted GENERAL SKIN EXAM: no rashes or lesions noted Urinary Catheter Management: Delacruz: Cath Placed During This Visit: yes, but has since been removed by the nurse Reason for Continuing Indwelling Catheter: Decision to DC Catheter Urinary Catheter Date of Insertion: 01/17/24 Urinary Catheter Time of Insertion: 08:18 Date Urinary Catheter Removed: 01/18/24 Time Urinary Catheter Discontinued: 05:50 Discharge Data Studies Completed and Pending Completed Studies During Hospitalization Category Date Time Status XR knee LT 1-2V 42234 Routine Exams 01/17/24 10:53 Completed Pending at discharge Category Date Time Status Complete Blood Count w/Auto AM LABS Lab 01/19/24 04:00 Ordered Complete Blood Count w/Auto AM LABS Lab 01/20/24 04:00 Ordered Radiology Impressions Knee X-Ray 01/17/24 10:53 IMPRESSION: 1. Postoperative changes status post left knee replacement. Laboratory Results WBC 7.13 10^3/uL (3.29-11.43) 01/18/24 05:37 RBC 3.88 10^6/uL (3.85-5.65) 01/18/24 05:37 Hgb 11.30 g/dL (11.27-16.99) 01/18/24 05:37 Hct 35.4 % (36-47) L 01/18/24 05:37 MCV 91.2 fl (85-98) 01/18/24 05:37 MCH 29.1 pg (27-33) 01/18/24 05:37 MCHC 31.9 g/dL (30-55) 01/18/24 05:37 RDW 13.2 % (12.1-15.1) 01/18/24 05:37 Plt Count 235 10^3/cmm (157-399) 01/18/24 05:37 MPV 10.2 fL (7.4-10.4) 01/18/24 05:37 Neut % (Auto) 63.1 % 01/18/24 05:37 Lymph % (Auto) 22.2 % 01/18/24 05:37 [place] % (Auto) 14.0 % 01/18/24 05:37 Eos % (Auto) 0.3 % 01/18/24 05:37 Baso % (Auto) 0.3 % 01/18/24 05:37 Neut # (Auto) 4.50 10^3/uL (1.8-7.7) 01/18/24 05:37 Lymph # (Auto) 1.6 10^3/uL (0.8-4.8) 01/18/24 05:37 [place] # (Auto) 1.0 10^3/uL (0.2-0.9) H 01/18/24 05:37 Eos # (Auto) 0.0 10^3/uL (0.0-0.8) 01/18/24 05:37 Baso # (Auto) 0.0 10^3/uL (0.0-0.1) 01/18/24 05:37 Nucleated RBC % (auto) 0 % 01/18/24 05:37 Nucleated RBCs # 0.0 /100WBC 01/18/24 05:37 Sodium 141 mmol/L (136-145) 01/18/24 05:37 Potassium 4.0 mmol/L (3.5-5.1) 01/18/24 05:37 Chloride 105 mmol/L (98-107) 01/18/24 05:37 Carbon Dioxide 23 mmol/L (22-29) 01/18/24 05:37 Anion Gap 17.0 (5-19) 01/18/24 05:37 BUN 10 mg/dL (8-23) 01/18/24 05:37 Creatinine 0.7 mg/dL (0.5-0.9) 01/18/24 05:37 GFR Calculation 83.2 mL/min (90-130) L 01/18/24 05:37 Glucose 135 mg/dL (65-115) H 01/18/24 05:37 Calculated Osmolality 293 mOsm/kg (285-295) 01/18/24 05:37 Calcium 8.9 mg/dL (8.5-10.5) 01/18/24 05:37 Vitals Last Vital Signs Temp 98.2 F 01/18/24 11:19 Pulse 71 01/18/24 11:19 Resp 17 01/18/24 11:19 BP 144/74 01/18/24 11:19 Pulse Ox 99 01/18/24 11:19 O2 Del Method Room Air 01/18/24 11:19 O2 Flow Rate 6 01/17/24 10:55 Discharge Plan Discharge Patient Disposition: Home Health Service Condition: Stable Prescriptions: New aspirin 325 mg Tablet,Delayed Release (Dr/Ec) 325 mg PO DAILY Qty: 0 0RF oxycodone 5 mg Tablet 5 - 10 mg PO Q4H PRN (Reason: Moderate To Severe Pain) Qty: 30 0RF Continued telmisartan [Micardis] 80 mg tablet 80 mg PO QPM Zyrtec 10 mg capsule 10 mg PO QPM (DME) CUSTOM ORTHOTICS MOLDED INSERTS See Rx Instructions .Route .MEDSUPPLY Qty: 1 0RF Rx Instructions: As directed (DME) CPAP Device See Rx Instructions .Route Rx Instructions: As directed Discharge Orders: Discharge Order (Routine); Ordered 01/18/24 Ordered By: Jodie Kurtz Other Ambulatory Orders: DME: Walker (Order) Location: None Selected Ordered By: Jodie Kurtz Referrals: Jodie Kurtz MD [Physician] - 02/06/24 10:15 am Niurka Vega DO [Primary Care Provider] - 01/20/24 3:00 pm Discharge Diet: Advance as tolerated and Usual diet Discharge Activity: Increase activity as tolerated, Limit activity as instructed, Use walker/crutches as instructed and As per PT/OT instructions Patient Instructions: Aspirin (By mouth), Oxycodone, Rapid Release (By mouth), Acute Wound Care (DC), Total Knee Replacement (GEN), Opioid Safety, Post Anesthesia Care Activity Restrictions/Additional Instructions: Ice and elevation to left lower extremity. You may shower once your large outer dressing is off, maintain clear dressing with the pad in the middle. Do not soak this knee in a bathtub, pool, or the river. Range of motion, gait training, and strengthening per physical therapy. Discharge Attestations Time Spent in Discharge Care*: greater than 30 min Specific Discharge Activities: educating patient, documenting/other paperwork and evaluating patient/reviewing data Quality Metrics Clinical Quality Measures [ No reported AMI, CVA or VTE this stay] Coding Level of Care Code Acute Code for Chg Fwd Diagnoses Primary osteoarthritis of left knee M17.12 Status post total left knee replacement using cement Z96.652
--- NOTE | 2024-01-18 14:51 | PC.NURSE ---
Discharge paperwork is signed. Patient just received walker and is awaiting meds to beds.
== END 2024-01-18 15:21 | disposition home health service (06) ==
PROVIDERS: Nurse Practitioner; Admitting Provider Specialist; PCP Family Medicine; Visit Provider Specialist
PROC: 8E0Y0CZ Robotic Assisted Procedure of Lower Extremity, Open Approach (ICD-10-PCS; CPT 27447; principal; 2024-01-17 07:50)
DX: M17.12 Unilateral primary osteoarthritis, left knee (principal); M21.162 Varus deformity, not elsewhere classified, left knee; G47.30 Sleep apnea, unspecified; I10 Essential (primary) hypertension; Z86.19 Personal history of other infectious and parasitic diseases
CPT/HCPCS: 20985; 27447; 36415; 51702; 73560; 80048; 85025; 97110; 97116; 97161; 97165; C1776; C9290; G0378; J0131; J0690; J1100; J2371; J2405; J2704; J2795; J3370; J3490; J7030

== ENCOUNTER → 2024-02-06 10:17 | Outpatient (BNVA) | payer MEDICARE, OTHER, SELFPAY | PROVIDERS: PCP Family Medicine; Visit Provider Specialist | DX: Z96.652 Presence of left artificial knee joint (principal) | CPT/HCPCS: 73560; 73565; 99024 ==

== ENCOUNTER → 2024-05-14 09:52 | Outpatient (BNVA) | payer MEDICARE, OTHER, SELFPAY | PROVIDERS: PCP Family Medicine; Visit Provider Specialist | DX: M17.11 Unilateral primary osteoarthritis, right knee (principal); Z01.818 Encounter for other preprocedural examination | CPT/HCPCS: 36415; 73560; 73565; 80053; 81001; 85025; 99214 ==

== ENCOUNTER 2024-05-24 12:28 | Outpatient (CLI) | payer MEDICARE, OTHER, SELFPAY ==
--- NOTE | 2024-05-24 16:45 | CT_ITS ---
WS: [id number] CT RIGHT knee, noncontrast H[facility]ORY: [facility] TECHNIQUE: Protocol for [facility] total knee replacement has been obtained. This includes axial imaging th rough the RIGHT hip, RIGHT knee and RIGHT ankle. DLP: 862.10 mGy.cm COMPARISON: None available. Pelvis: Symmetric appearance of the pelvis. No bone destruction. Numerous sigmoid diverticula without acute diverticulitis. No free fluid in the pelvis. RIGHT knee: Moderate tricompartment joint space narrowing. Small marginal osteophytes. No fractures o r bone destruction. No significant joint effusion. RIGHT ankle: No fracture. Orthopedic hardware noted in the midfoot. CT/CT knee RT ISABEL [id number] IMPRESSION: CT imaging provided for [facility] robotic total knee replacement.
== END 2024-05-24 12:29 | disposition home or self-care (01) ==
LOC: RAD 12:29
PROVIDERS: PCP Nurse Practitioner Family; Visit Provider Specialist
DX: Z01.818 Encounter for other preprocedural examination (principal); M17.11 Unilateral primary osteoarthritis, right knee
CPT/HCPCS: 73700

== ENCOUNTER 2024-06-05 11:22 | Observation (INO) | payer MEDICARE, OTHER, SELFPAY ==
[2024-06-05] VITALS (27 sets, daily range): BP systolic 92–174; BP diastolic 58–95; PULSE 59–80; RESP 8–24; TEMP 36.1–37.3; O2SAT 93–100; BMI 33.6
--- NOTE | 2024-06-05 06:22 | ANES.PREANE2 ---
Pre-Anesthetic Assessment Height/Weight: Height 5 ft 2 in Weight 184 lb Temp Pulse Resp BP Pulse Ox O2 Del Method 97.2 F L 71 18 155/95 98 Room Air 06/05/24 06:10 06/05/24 06:10 06/05/24 06:10 06/05/24 06:10 06/05/24 06:10 06/05/24 06:10 Preop Diagnosis: Hip arthritis Operation Date: 06/05/24 07:00 Proposed Procedures p Roby Robot Total Knee Arthroplasty(Right) - Jodie Kurtz MD Was Beta Devin taken within 24 hours: Yes Was Clonidine taken within 24 hours: N/A Social No alcohol and No tobacco Exam alert, oriented x 3, clear to auscultation bilaterally and regular rate & rhythm Airway Submandibular: within normal limits Cervical ROM: within normal limits Mallampati: Class II Dentition: full Anesthetic Plan ASA status: 3 Anesthesia: MAC and Regional (specify below) Other: Prior TKA in January 2024 under spinal anesthesia without issues Patient has a history of being difficult to intubate and states she has a floppy uvula NPO since yesterday COURTNEY on CPAP Hypertension on clonidine and metoprolol, taken yesterday. 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 Labs 05/14 reviewed acceptable for procedure EKG showing sinus rhythm with conduction delay Plan for spinal anesthetic Medications/Allergies Home Medications Medication Instructions Recorded Confirmed Last Taken Type CUSTOM ORTHOTICS MOLDED INSERTS #1 ea 04/29/20 05/14/24 Unknown Rx cetirizine 10 mg capsule (Zyrtec) 10 mg PO QPM 04/29/20 06/04/24 06/04/24 History telmisartan 80 mg tablet (Micardis) 80 mg PO QPM 04/29/20 06/04/24 06/04/24 History CPAP 10/04/22 05/14/24 Unknown History clonidine HCl 0.1 mg tablet 0.1 mg PO BID PRN Blood Pressure 05/21/24 06/04/24 Unknown History metoprolol succinate 50 mg 50 mg PO DAILY #10 tabs 05/21/24 06/04/24 06/04/24 Rx tablet,extended release 24 hr trazodone 50 mg tablet 50 mg PO DAILY #1 tab 05/21/24 06/04/24 06/01/24 Rx Allergies Allergy/AdvReac Type Severity Reaction Status Date / Time Beef Containing Products Allergy Severe ALGY-Anaphy Verified 06/04/24 13:22 laxis pork derived (porcine) Allergy Severe ALGY-Anaphy Verified 06/04/24 13:22 laxis Alpha-Gal Allergy Unknown Unknown Verified 06/04/24 13:22 (Debeyhrwc-Hxhfm-4,3-Gala PFS Anesthesia Medical History Primary osteoarthritis of left knee Difficult airway for intubation Rectocele Cystocele Uterine prolapse Osteopenia Hypertension History of allergic rhinitis History of hepatitis C treatment in 2007 Hypertension Hypothyroidism Inflammatory arthritis Surgical History History of abdominal surgery History of hand surgery Hx of hernia repair History of refractive surgery Family History Other CAD (coronary artery disease) Hypertension Denies family history of Colon cancer Ovarian cancer Diabetes Hypercholesteremia Breast cancer Uterine cancer Thyroid disease Stroke Social History Smoking and tobacco/nicotine status: never used tobacco/nicotine Substance/Drug Use: never Data Anesthesia Cardiac Studies: Echocardiogram 05/20/21 Stress Echocardiogram 05/12/23
[2024-06-05] MEDS: acetaminophen 1,000 MG/100 ML PIGGYBACK 400 MG IV ×3 (06:25→22:04)
[2024-06-05] MEDS: sodium chloride 0.9% 1,000 ML 30 ML IV (06:26)
--- NOTE | 2024-06-05 07:02 | P.HPUD_ITS ---
Surgery/Procedure H&P Update DATE OF PROCEDURE: June 05, 2024 DATE H&P PERFORMED: 05/21/24 H&P UPDATE INFORMATION: I have reviewed H&P completed within last 30 days, I have examined patient prior to procedure, No changes to prior documentation and H&P is in [facility] EMR on date indicated PREOP DIAGNOSIS: Hip arthritis PLANNED PROCEDURE: Operation Date: 06/05/24 07:00 Proposed Procedures p Roby Robot Total Knee Arthroplasty(Right) - Jodie Kurtz MD Related Problem List Diagnoses (1) Primary osteoarthritis of right knee:
[2024-06-05] MEDS: ceFAZolin 2,000 mg SDV 2000 MG IVP ×3 (07:05→22:04)
[2024-06-05] MEDS: tranexamic acid 1,000 mg/10mL SDV 1000 MG IV (07:34)
[2024-06-05] MEDS: ceFAZolin 1,000 mg SDV 2000 MG IRRIGATION (08:19)
[2024-06-05] MEDS: VANCOMYCIN ADD-Vantage 1,000 MG VIAL 1000 MG XX (08:20)
--- NOTE | 2024-06-05 10:14 | P.OP_ITS ---
Operative Report Date of procedure: June 05, 2024 Pre-op diagnosis: Severe degenerative osteoarthritis with right hyperextension and varus deformity Post-op diagnosis: Severe degenerative osteoarthritis with right hyperextension and varus deformity Post-op findings: Slight hyperextension with varus deformity and significant degenerative osteoarthritis with large osteophytes Procedure done: Right total knee arthroplasty with Roby guidance Implants: The [employer] total knee system with a size 2 triathlon beaded cruciate retaining femur right, a triathlon titanium tibial component size 2 beaded, a triathlon X3 tibial bearing CS insert size 2 X 12 mm and a beaded triathlon titanium asymmetric patella size 29 x 9 mm Specimens removed/disposition: Bone, disposed of Pathology: None Surgeon: Jodie Kurtz MD Mutual Fund Analyst: Jie Ashford, nurse practitioner, who services were necessary for positioning, exposure, implantation, closure, and completion of the surgical procedure. Anesthesia: MAC (ASA 3) and Spinal Estimated blood loss (mL): 90 Tourniquet time (min): 0 (Not utilized) IV fluids (mL): 1,300 Urine output (mL): 200 Complications: None Findings: Severe degenerative osteoarthritis with slight varus deformity and significant hyperextension. Condition: stable Disposition: PACU (Then to floor for postoperative rehabilitation and pain management) Brief History: This 69-year-old woman presented to the office initially complaining of bilateral knee pain. In January of this year, she had left total knee arthroplasty, and she has recovered nicely from this. Patient has significant limitations in activities of daily living. The knee limits her ambulation. She has had previous Monovisc and cortisone injections which are no longer of benefit. She presented to the office wishing to proceed with right total knee arthroplasty. Risks and complications were discussed with her. Consents were signed and questions were answered. Procedure: The patient was brought to the operating theater, and after undergoing spinal anesthetic, with MAC, ASA 3, the right lower extremity was prepped with Dura- Prep and draped in usual fashion following placement of a tourniquet high on the leg. Plans were made for postoperative adductor block. The leg was then draped free.? Tourniquet was not elevated during the case.? A surgical pause was performed, and at the time of the surgical pause, we confirmed the site and side of surgery. Additionally, we confirmed the appropriate and timely administration of preoperative antibiotics, Ancef 2 g.? The availability of equipment was confirmed, and the patient's identity was verbalized as well. Following the surgical pause, an incision was made centering over the patella continuing proximally and distally as necessary to allow access to the knee joint. Dissection continued through skin and soft tissues using a scalpel. Hemostasis was obtained using electrocautery. The skin incision was followed by a median parapatellar arthrotomy. The leg was extended and the patella was able to be displaced laterally.? Appropriate arrays and markers were placed in appropriate position for use of the Roby.? Preoperative planning had been accomplished and was discussed in detail with the Roby wireless sales representative.? Intraoperative mapping of the femur and tibia was accomplished after the arrays were placed.? Internal markers were also placed.? Once we had accomplished the Roby mapping, we began the appropriate resections for placement of the prosthesis.? The plan was for a cruciate retaining right total knee arthroplasty. Once appropriate mapping had been accomplished retraction was established using manual retraction by surgical technicians and also the Roby leg positioner and retractors.? The knee was evaluated.? There was significant osteoarthritic change as well as very minimal flexion contracture as well as varus deformity.? Appropriate bone resection was accomplished using the Roby.? The femur was sized to a size 2.? Following femoral cuts, attention was directed to the tibia.? Osteophytes were removed prior to this portion of the procedure.? We had performed a minimal medial release at the beginning of the procedure to allow for placement of the array.? Proximal tibia was evaluated, and it was felt that appropriate size for the tibia was a size 2.? Tray was noted to fit nicely with good coverage.? Rim fit was accomplished with the size 2. A trial reduction was accomplished after osteophytes have been removed as well as the medial and lateral menisci.? We had removed the anterior cruciate ligament at the beginning of the case and preserved the posterior cruciate ligament.? Trial reduction was accomplished with a size 2 femoral cruciate retaining component, a size 2 tibial tray and a size 2 CS tibial bearing insert which was 9 mm, and a second trial reduction was accomplished with a size 11 insert.? Secondary to the balancing of the knee, we elected to place a 12 mm insert for the actual component. Alignment was felt to be appropriate as well.? Trial components were removed after the femur had been drilled.? Prior to removal of the tibial tray which had been pinned in position with appropriate rotation as determined by the Roby plan, we broached the tibia.? Subsequently, the 4 drill holes were made for the prosthetic component.? All trial components were removed, and the wound was irrigated.? Plans were made for insertion of the prosthetic components.? Prior to this, the patella was manually prepared.? After resection of the articular surface with the jogging system, it was measured and measured a 29 mm patella.? We resected approximately 7 mm of patella.? Patellar height was restored with the patellar component. Once again, the wound was irrigated.? The Tritanium tibia was impacted into position.? The beaded femur was then impacted into position in a cementless fashion. The CS tibial insert was placed prior to placement of the femoral component. The patella was pressed into position with a patellar clamp.? The knee was then copiously irrigated with betadine and saline and suctioned dry. Attention was then directed to closure. Closure was accomplished with 0 Vicryl in the fascial tissues.? The suture line of 0 Vicryl was supplemented with strata fix, #1, with a running stitch from proximal to distal and a second r unning stitch from distal to proximal.? This was followed by Surgiflo and vancomycin powder.? Following this, a 2-0 Monocryl strata fix was used in the subcutaneous tissues, and the skin was closed with 3-0 Strata fix.? Care was taken to assure an excellent subcutaneous as well as skin closure.? A sterile dressing was then placed consisting of Dermabond Prineo, OpSite, ABD, sterile soft roll, and an John wrap including over the foot. The patient was returned the Recovery Room in a satisfactory condition. X-rays were obtained and reviewed there.? The patient will be discharged to the floor for postoperative rehabilitation and pain management. Related Problem List Diagnoses (1) Primary osteoarthritis of right knee:
--- NOTE | 2024-06-05 10:16 | XR_ITS ---
WS: [id number] XR knee RT 1-2V 53314 REASON FOR EXAM: Status post right total knee arthroplasty FINDINGS: Total right knee arthroplasty. Components of the arthroplasty are intact and in proper position and alignment. No focal bony abnormality. XR/XR knee RT 1-2V [id number] IMPRESSION: Total right knee arthroplasty without abnormality.
[2024-06-05] MEDS: fentaNYL 50 mcg/mL INJ 2mL IVP ×2 (10:22→10:46)
--- NOTE | 2024-06-05 10:38 | PC.NURSE ---
1039 - Dr Wolfe at side to do block at bedside in PACU
--- NOTE | 2024-06-05 10:50 | ANES.PROC ---
Anesthesia Procedures Procedure/Date: 06/05/24 Nerve Block ^: Nerve Block 1: Main Anesthesia: general anesthesia Time Out Performed: Yes Consent: requested by attending/covering physician and from patient Nerve block location: adductor canal Anesthesia monitors applied: pulse oximetry, EKG, BP cuff and oxygen Nerve block position: supine Anesthetic Used: ropivicaine 0.5% Amount of anesthesia used (mL): 15 Ultrasound used to: recognize landmarks Nerve Stimulator Used?: No Interscalene/Femoral BLK: other needle (pjunk 4inch) Injection: neg aspiration of heme Patient Tolerated Procedure: well Complications: none Nerve Block 2: Main Anesthesia: general anesthesia Time Out Performed: Yes Consent: requested by attending/covering physician Nerve block location: other (IPACK) Anesthesia monitors applied: pulse oximetry, EKG, BP cuff and oxygen Nerve block position: supine Anesthetic Used: ropivicaine 0.5% Amount of anesthesia used (mL): 15 Ultrasound used to: recognize landmarks Nerve Stimulator Used?: No Interscalene/Femoral BLK: other needle (pjunk 4inch) Injection: neg aspiration of heme Patient Tolerated Procedure: well Complications: none
--- NOTE | 2024-06-05 11:20 | PC.NURSE ---
1112 - accepted to floor by MAYA Grant BP 141/58 - pulse 63 - 02 94% - Temp 97.2
--- NOTE | 2024-06-05 11:30 | ANE.PACU2 ---
Inpatient post-anesthesia follow up: Airway intact: Yes Vital signs: Temperature 98.1 F Pulse Rate 71 Respiratory Rate 17 Blood Pressure 169/76 Pulse Oximetry 93 Oxygen Delivery Me thod Room Air Oxygen Flow Rate Fraction of Inspir ed Oxygen Hydration adequate: Yes Nausea and vomiting: No Pain level: 3 Mental status: Baseline
[2024-06-05] MEDS: oxyCODONE 5 mg IR Tab/Cap PO ×3 (11:34→19:44)
[2024-06-05] MEDS: metoprolol succinate ER (24 HR) 50 mg Tablet PO (12:47)
[2024-06-05] MEDS: calcium carbonate 500 mg Chew Tablet 1000 MG PO (17:29)
[2024-06-05] MEDS: cetirizine 10 mg Tablet PO (17:29)
[2024-06-05] MEDS: mupirocin oint 22 gm 1 APPLIC NASAL (17:29)
[2024-06-05] MEDS: sennosides-docusate Tablet 2 TAB PO (17:29)
[2024-06-05] MEDS: chlorhexidine gluconate 0.12% Btl 473 mL 30 ML MUCOUS MEM ×2 (17:30→19:46)
--- NOTE | 2024-06-05 22:44 | PC.NURSE ---
Dr. Reid notified of patient c/o 04/12 pain not relieved by PRN Oxycodone. Ordered to increase Oxycodone dose from 5-10 mg to 10-20 mg PRN.
[2024-06-05] MEDS: oxyCODONE 5 mg IR Tab/Cap 10 MG PO (22:53)
[2024-06-06] VITALS (12 sets, daily range): BP systolic 138–186; BP diastolic 61–79; PULSE 60–84; RESP 16–19; TEMP 36.8–37.2; O2SAT 93–100
[2024-06-06] MEDS: oxyCODONE 5 mg IR Tab/Cap PO ×4 (02:52→15:28)
[2024-06-06 05:35] LABS: Basophils % 0.4 %; Eosinophils % 0.1 %; Hematocrit 34.2 % (36-47); Lymphocytes # 1.5 10^3/uL (0.8-4.8); Lymphocytes % 19.7 %; Mean Corpuscular HGB Conc 31.6 g/dL (30-55); Mean Corpuscular Hemoglobin 28.2 pg (27-33); Mean Corpuscular Volume 89.3 fl (85-98); Mean Platelet Volume 10.1 fL (7.4-10.4); Monocytes # 1.3 10^3/uL (0.2-0.9); Monocytes % 16.6 %; Neutrophils # 4.84 10^3/uL (1.8-7.7); Neutrophils % 62.9 %; Nucleated Red Blood Cells % 0 %; Platelet Count 280 10^3/cmm (157-399); Red Blood Count 3.83 10^6/uL (3.85-5.65); Red Cell Distribution Width 14.3 % (12.1-15.1)
[2024-06-06] MEDS: acetaminophen 1,000 MG/100 ML PIGGYBACK 400 MG IV (06:01)
[2024-06-06] MEDS: ceFAZolin 2,000 mg SDV 2000 MG IVP (06:01)
[2024-06-06 06:07] LABS: Anion Gap 12.7 (5-19); Blood Urea Nitrogen 14 mg/dL (8-23); Calcium 9.4 mg/dL (8.5-10.5); Carbon Dioxide 28 mmol/L (22-29); Chloride 102 mmol/L (98-107); Creatinine Clr Calc Pharmacy 66.4734; Glomerular Filtration Rate 99.1 mL/min (90-130); Glucose 116 mg/dL (65-115); Osmolality Calculated 287 mOsm/kg (285-295); Potassium 4.7 mmol/L (3.5-5.1); Sodium 138 mmol/L (136-145)
[2024-06-06] MEDS: chlorhexidine gluconate 0.12% Btl 473 mL 30 ML MUCOUS MEM (08:01)
[2024-06-06] MEDS: cholecalciferol (vitamin D3) 1,000 unit Tablet 1000 UNIT PO (08:02)
[2024-06-06] MEDS: mupirocin oint 22 gm 1 APPLIC NASAL (08:02)
[2024-06-06] MEDS: aspirin 325 mg EC Tablet PO (08:02)
[2024-06-06] MEDS: sennosides-docusate Tablet 2 TAB PO (08:02)
[2024-06-06] MEDS: calcium carbonate 500 mg Chew Tablet 1000 MG PO (08:02)
[2024-06-06] MEDS: multivitamin therapeutic Tablet 1 TAB PO (08:02)
--- NOTE | 2024-06-06 09:09 | PC.CHAP ---
Pastoral Care Encounter/Spiritual Assessment Type of Contact [] Declined automotive warranty administrator visit [] Patient/Family/Request visit [] Outpatient visit [] Follow-up visit [] Physician referral [] Code/Alert [] Routine visit [] Staff referral [] Actively dying [] Patient sleeping [] Family support [] [] Out of room [] Palliative care [] [x] Receiving care in room [] Pre-surgical visit [] Trauma [] Long length of stay [] ICU visit [] Other: Relational/Emotional Strength [] Patient feels connected with others/family/visitors/staff [] Distress [] Loneliness/isolation [] Abandonment Spirituality of Patient [] Person of Jodee [] Attends Jew of their Jodee [] Believes in Prayer [] Reads Bible or Tenriism materials [] There are Spiritual issues to be addressed Accountant Bookkeeper Interventions [] Prayer [] Active listening [] Non-anxious presence [] Spiritual/emotional support [] Crisis/trauma care [] Spiritual counseling [] Bereavement support [] Provided bereavement packet [] Provided Bible/devotional materials [] Provided toy/stuffed animal, coloring book to patient or family member [] Provided Communion [] Anointing/Talpa [] Salvation [] Completed spiritual assessment [] Other: Impact on Illness or Injury [] Angry [] Fearful [] Anxious [] Often cries [] Exhaustion [] Unable to work [] Unable to attend gnosticism [] Unable to walk/stand [] Unable to read [] Unable to drive [] Unable to eat/drink [] Unable to sleep [] Unable to be with family [] Patient intubated [] Other: Summary Time spent with patient
--- NOTE | 2024-06-06 16:27 | P.DS_ITS ---
Discharge Providers Date of Admission: 06/05/24 11:22 Date of Discharge: June 06, 2024 Attending Provider at Admission: Jodie Kurtz MD Attending Provider at Discharge: Jodie Kurtz MD Primary Care Provider: DAMARIS Ochoa Diagnoses at Discharge Discharge Diagnosis (1) Primary osteoarthritis of right knee: Status: Acute (2) Status post total right knee replacement not using cement: Status: Acute Permanent problem details: Date of procedure: June 05, 2024 Diagnosis: Severe degenerative osteoarthritis with right hyperextension and varus deformity Procedure done: Right total knee arthroplasty with Roby guidance Implants: The Modlar total knee system with a size 2 triathlon beaded cruciate retaining femur right, a triathlon titanium tibial component size 2 beaded, a triathlon X3 tibial bearing CS insert size 2 X 12 mm and a beaded triathlon titanium asymmetric patella size 29 x 9 mm Reason for Visit Reason for Visit: M17.11 Brief History: This 69-year-old woman presented to the office initially complaining of bilateral knee pain. In January of this year, she had left total knee arthroplasty, and she has recovered nicely from this. Patient has significant limitations in activities of daily living. The knee limits her ambulation. She has had previous Monovisc and cortisone injections which are no longer of benefit. She presented to the office wishing to proceed with right total knee arthroplasty. Risks and complications were discussed with her. Consents were signed and questions were answered. Hospital Course Hospital Course This 69-year-old woman presented to the hospital for same-day surgery in the form of right total knee arthroplasty. Risks and complications have been discussed with her in the office. Her consents were signed and questions were answered. She was having significant limitations in her activities of daily living. Surgical procedure was uneventful and she was admitted to the hospital under observation status. She worked with physical therapy and was felt safe for discharge to home. Her dressing was removed. There was no evidence of DVT. She was able to straight leg raise and was neurologically intact. She will follow-up with me in the office as planned and scheduled. Physical Exam Const: COMMON NORMALS: no acute distress, average body habitus, patient oriented x3 and alert GENERAL APPEARANCE: cooperative and comfortable ORIENTATION/CONSCIOUSNESS: Yes awake HENMT: COMMON NORMALS: normocephalic and atraumatic HEAD & SCALP: normocephalic and atraumatic Eye: GENERAL EYE: appearance normal, both eyes and all related structures Chest: COMMONS NORMALS: normal inspection of the chest Resp: COMMON NORMALS: normal respiratory effort EFFORT & INSPECTION: Yes able to speak in complete sentences and Yes symmetric chest movement Extremity: RIGHT LOWER EXTREMITY: Yes knee joint (Large outer dressing is removed.) Right knee: Yes palpation (Minimal to no tenderness.), Yes ROM (Able to straight leg raise.) and Yes neurovascular exam (Intact distally with no evidence of DVT.) Neuro: COMMON NORMALS: patient oriented x3 SENSORIUM/ORIENTATION: Yes alert Psych: COMMON NORMALS: mental status grossly normal APPEARANCE: Yes grossly normal ATTITUDE: Yes calm and Yes engaged ATTENTION/CONCENTRATION: Yes attention grossly intact Skin: COMMON NORMALS: no rashes or lesions noted GENERAL SKIN EXAM: no rashes or lesions noted Urinary Catheter Management: Delacruz: Cath Placed During This Visit: yes, but has since been removed by the nurse Reason for Continuing Indwelling Catheter: Decision to DC Catheter Urinary Catheter Date of Insertion: 06/05/24 Urinary Catheter Time of Insertion: 07:30 Date Urinary Catheter Removed: 06/06/24 Time Urinary Catheter Discontinued: 06:22 Discharge Data Studies Completed and Pending Completed Studies During Hospitalization Category Date Time Status XR knee RT 1-2V 11550 Routine Exams 06/05/24 10:16 Completed Radiology Impressions Knee X-Ray 06/05/24 10:16 IMPRESSION: Total right knee arthroplasty without abnormality. Laboratory Results WBC 7.70 10^3/uL (3.29-11.43) 06/06/24 04:47 RBC 3.83 10^6/uL (3.85-5.65) L 06/06/24 04:47 Hgb 10.80 g/dL (11.27-16.99) L 06/06/24 04:47 Hct 34.2 % (36-47) L 06/06/24 04:47 MCV 89.3 fl (85-98) 06/06/24 04:47 MCH 28.2 pg (27-33) 06/06/24 04:47 MCHC 31.6 g/dL (30-55) 06/06/24 04:47 RDW 14.3 % (12.1-15.1) 06/06/24 04:47 Plt Count 280 10^3/cmm (157-399) 06/06/24 04:47 MPV 10.1 fL (7.4-10.4) 06/06/24 04:47 Neut % (Auto) 62.9 % 06/06/24 04:47 Lymph % (Auto) 19.7 % 06/06/24 04:47 [place] % (Auto) 16.6 % 06/06/24 04:47 Eos % (Auto) 0.1 % 06/06/24 04:47 Baso % (Auto) 0.4 % 06/06/24 04:47 Neut # (Auto) 4.84 10^3/uL (1.8-7.7) 06/06/24 04:47 Lymph # (Auto) 1.5 10^3/uL (0.8-4.8) 06/06/24 04:47 [place] # (Auto) 1.3 10^3/uL (0.2-0.9) H 06/06/24 04:47 Eos # (Auto) 0.0 10^3/uL (0.0-0.8) 06/06/24 04:47 Baso # (Auto) 0.0 10^3/uL (0.0-0.1) 06/06/24 04:47 Nucleated RBC % (auto) 0 % 06/06/24 04:47 Nucleated RBCs # 0.0 /100WBC 06/06/24 04:47 Sodium 138 mmol/L (136-145) 06/06/24 04:47 Potassium 4.7 mmol/L (3.5-5.1) 06/06/24 04:47 Chloride 102 mmol/L (98-107) 06/06/24 04:47 Carbon Dioxide 28 mmol/L (22-29) 06/06/24 04:47 Anion Gap 12.7 (5-19) 06/06/24 04:47 BUN 14 mg/dL (8-23) 06/06/24 04:47 Creatinine 0.6 mg/dL (0.5-0.9) 06/06/24 04:47 GFR Calculation 99.1 mL/min (90-130) 06/06/24 04:47 Glucose 116 mg/dL (65-115) H 06/06/24 04:47 Calculated Osmolality 287 mOsm/kg (285-295) 06/06/24 04:47 Calcium 9.4 mg/dL (8.5-10.5) 06/06/24 04:47 Vitals Last Vital Signs Temp 99.0 F 06/06/24 15:56 Pulse 84 06/06/24 15:56 Resp 18 06/06/24 15:56 BP 186/79 06/06/24 15:56 Pulse Ox 93 06/06/24 15:56 O2 Del Method Nasal Cannula 06/06/24 15:56 Discharge Plan Discharge Patient Disposition: Home Health Service Condition: Stable Prescriptions: New aspirin 325 mg Tablet,Delayed Release (Dr/Ec) 325 mg PO DAILY 30 Days Qty: 30 0RF oxycodone 5 mg Tablet 5 - 10 mg PO Q4H PRN (Reason: Moderate To Severe Pain) 7 Days Qty: 40 0RF Continued telmisartan [Micardis] 80 mg tablet 80 mg PO QPM Zyrtec 10 mg capsule 10 mg PO QPM (DME) CUSTOM ORTHOTICS MOLDED INSERTS See Rx Instructions .Route .MEDSUPPLY Qty: 1 0RF Rx Instructions: As directed (DME) CPAP Device See Rx Instructions .Route Rx Instructions: As directed clonidine HCl 0.1 mg tablet 0.1 mg PO BID PRN (Reason: Blood Pressure) metoprolol succinate 50 mg tablet extended release 24 hr 50 mg PO DAILY Qty: 10 0RF trazodone 50 mg tablet 50 mg PO DAILY Qty: 1 0RF Discharge Orders: Discharge Order (Routine); Ordered 06/06/24 Ordered By: Jodie Kurtz Referrals: [facility] [Outside] Jodie Kurtz MD [Physician] - 06/18/24 11:15 am Discharge Diet: Advance as tolerated and Usual diet Discharge Activity: Limit activity as instructed, Use walker/crutches as instructed and As per PT/OT instructions Patient Instructions: Oxycodone/Acetaminophen (By mouth), Aspirin (By mouth), Acute Wound Care (DC), Total Knee Replacement (GEN), Post Anesthesia Care Activity Restrictions/Additional Instructions: Weight-bear as tolerated. Range of motion, strengthening, and gait training per physical therapy. You may shower with the clear plastic dressing in place. Do not remove it unless it begins to leak. Otherwise, we will remove it at the office. Ice and elevation. Discharge Attestations Time Spent in Discharge Care*: greater than 30 min Specific Discharge Activities: educating patient, educating and/or supporting family/caregiver, documenting/other paperwork and evaluating patient/reviewing data Quality Metrics Clinical Quality Measures [ No reported AMI, CVA or VTE this stay] Coding Level of Care Code Acute Code for Chg Fwd Diagnoses Primary osteoarthritis of right knee M17.11 Status post total right knee replacement not using cement Z96.651
--- NOTE | 2024-06-06 16:34 | PC.NURSE ---
Discharge instructions provided to pt and her . No questions or concerns at this time. To private vehicle via wheelchair with all belongings.
== END 2024-06-06 16:37 | disposition home health service (06) ==
LOC: MEDSURG 11:22
PROVIDERS: Admitting Provider Specialist; PCP Nurse Practitioner Family; Visit Provider Specialist
PROC: 8E0Y0CZ Robotic Assisted Procedure of Lower Extremity, Open Approach (ICD-10-PCS; CPT 27447; principal; 2024-06-05 07:00)
DX: M17.11 Unilateral primary osteoarthritis, right knee (principal); M21.161 Varus deformity, not elsewhere classified, right knee; G47.33 Obstructive sleep apnea (adult) (pediatric); I10 Essential (primary) hypertension; H81.09 Meniere's disease, unspecified ear; E03.9 Hypothyroidism, unspecified
CPT/HCPCS: 27447; 20985; 36415; 51702; 73560; 80048; 85025; 97110; 97116; 97161; 97165; C1776; G0378; J0131; J0690; J1100; J2250; J2371; J2405; J2704; J3010; J3370; J7030

== ENCOUNTER → 2024-06-18 11:02 | Outpatient (BNVA) | payer MEDICARE, OTHER, SELFPAY | PROVIDERS: PCP Nurse Practitioner Family; Visit Provider Specialist | DX: Z96.651 Presence of right artificial knee joint (principal); M17.11 Unilateral primary osteoarthritis, right knee | CPT/HCPCS: 73560; 73565; 99024 ==

== ENCOUNTER → 2024-07-30 10:07 | Outpatient (BNVA) | payer MEDICARE, OTHER, SELFPAY | PROVIDERS: PCP Nurse Practitioner Family; Visit Provider Specialist | DX: Z96.651 Presence of right artificial knee joint (principal); M17.11 Unilateral primary osteoarthritis, right knee | CPT/HCPCS: 73560; 73565 ==

== ENCOUNTER 2024-11-04 09:25 | Emergency (ER) | payer MEDICARE, OTHER, SELFPAY ==
[2024-11-04] VITALS (7 sets, daily range): BP systolic 152–182; BP diastolic 71–99; PULSE 70–76; RESP 14–18; TEMP 36.6; O2SAT 95–98
--- NOTE | 2024-11-04 09:32 | ECG_ITS ---
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 Measurements Intervals [place] Rate: 72 P: 68 [place]: 175 QRS: 59 QRSD: 104 T: 49 QT: 412 QTc: 454 Interpretive Statements SINUS RHYTHM WITH FREQUENT VENTRICULAR PREMATURE COMPLEXES MODERATE ST DEPRESSION [0.05+ mV ST DEPRESSION] Compared to ECG 01/09/2024 11:16:12 Ventricular premature complex(es) now present ST (T wave) deviation now present T-wave abnormality no longer present Electronically Signed On 11-05-2024 09:17:32 CDT by Sebastian Frederick M.D. [email or web address] [id number]
--- NOTE | 2024-11-04 09:38 | XRR_ITS ---
PROCEDURE INFORMATION: Exam: XR Chest Exam date and time: 11/04/2024 9:47 AM Age: 69 years old Clinical indication: Cough and dyspnea; Additional info: Dyspnea/cough TECHNIQUE: Imaging protocol: Radiologic exam of the chest. Views: 1 view. COMPARISON: ES surgery / GI images 12/27/2022 8:03 AM FINDINGS: Lungs: Unremarkable. No consolidation. Pleural spaces: Unremarkable. No pleural effusion. No pneumothorax. Heart/Mediastinum: Unremarkable. No cardiomegaly. Bones/joints: Unremarkable. XR/XR chest 1V portable [id number] IMPRESSION: No acute findings.
[2024-11-04 09:43] LABS: Add Urine Microscopic? NO
--- NOTE | 2024-11-04 09:44 | W.ED.ARRPALP ---
HPI - Arrhythmia/Palpitations General: Chief Complaint: Arrhythmia/Palpitations Stated Complaint: HTN Time Seen by Provider: 11/04/24 09:32 History of Present Illness: 51-year-old female presents emergency room with a complaint of palpitations intermittently for the last 3 days no chest discomfort no abdominal pain no associated shortness of breath. She has had this in the past she had a Holter monitor in 2022 which showed 1 nonsustained run of SVT of 7 beats the remainder of the monitor showed PVCs and PACs which is what her notations during the test correlated with. There is no mention of atrial fibrillation. Patient is on clonidine metoprolol and telmisartan she takes telmisartan at night she did take it last night she has not taken the metoprolol today. She had recorded several blood pressures which she took with her today to the emergency room at home she reports her blood pressures were low recorded pressures on her sheet of paper do have multiple pressures either just above 100 or slightly below in a couple of cases. She did not take her metoprolol today. Related Data Home Medications ?Medication ?Instructions ?Recorded ?Confirmed aspirin 81 mg tablet,delayed 81 mg PO DAILY 11/04/24 11/04/24 release metoprolol succinate 50 mg 50 mg PO DAILY 11/04/24 11/04/24 tablet,extended release 24 hr multivitamin 1 tab PO DAILY 11/04/24 11/04/24 telmisartan 80 mg tablet 80 mg PO DAILY 11/04/24 11/04/24 trazodone 100 mg tablet 100 mg PO QPM 11/04/24 11/04/24 Allergies Allergy/AdvReac Type Severity Reaction Status Date / Time Beef Containing Products Allergy Severe ALGY-Anaphy Verified 11/04/24 09:30 laxis pork derived (porcine) Allergy Severe ALGY-Anaphy Verified 11/04/24 09:30 laxis Alpha-Gal Allergy Unknown Unknown Verified 11/04/24 09:30 (Bifhkiylt-Drbct-7,3-Gala Review of Systems Const: Denies: fever(s) or chills Card: Reports: palpitations; Denies: chest pain, edema, swelling of feet/ankles or orthopnea Resp: Denies: dyspnea GI: Denies: abdominal pain : Denies: dysuria, urinary frequency or urinary urgency Musc: Denies: neck pain or back pain Skin/Breast: Denies: rash PFSH ED PFSH: Medical History Primary osteoarthritis of left knee Difficult airway for intubation Rectocele Cystocele Uterine prolapse Osteopenia Hypertension History of allergic rhinitis History of hepatitis C treatment in 2007 Hypertension Hypothyroidism Inflammatory arthritis Surgical History History of abdominal surgery History of hand surgery Hx of hernia repair History of refractive surgery Family History Other CAD (coronary artery disease) Hypertension Denies family history of Colon cancer Ovarian cancer Diabetes Hypercholesteremia Breast cancer Uterine cancer Thyroid disease Stroke Social History Smoking and tobacco/nicotine status: never used tobacco/nicotine Substance/Drug Use: never Physical Exam Const: COMMON NORMALS: no acute distress GENERAL APPEARANCE: cooperative and comfortable ORIENTATION/CONSCIOUSNESS: Yes awake, Yes oriented to person, Yes oriented to place and Yes oriented to time HENMT: COMMON NORMALS: normocephalic, atraumatic and hearing grossly normal bilaterally HEAD & SCALP: normocephalic and atraumatic Resp: COMMON NORMALS: normal respiratory effort, No retractions, No use of accessory muscles and clear to auscultation bilaterally AUSCULTATION: clear to auscultation bilaterally Cardio: COMMON NORMALS: regular rate, regular rhythm and No murmurs present (Cardio) RATE: regular rate RHYTHM: regular rhythm GI: COMMON NORMALS: Soft to palpation and No hepatosplenomegaly present AUSCULTATION: Yes normoactive bowel sounds PALPATION: Yes Soft to palpation, No Tenderness to palpation present (GI), No Guarding due to palpation present (GI) and Yes No hepatosplenomegaly present Extremity: COMMON NORMALS: normal to inspection, capillary refill normal, no clubbing, cyanosis or edema, no calf tenderness and no pedal edema Neuro: SENSORIUM/ORIENTATION: Yes oriented to person, Yes oriented to place and Yes oriented to time Skin: COMMON NORMALS: no rashes or lesions noted GENERAL SKIN EXAM: no rashes or lesions noted Course Vital Signs: Vital signs: Vital Signs Temperature 98 F 11/04/24 09:26 Pulse Rate 72 05/04/25 12:37 Respiratory Rate 16 11/04/24 12:00 Blood Pressure 166/77 11/04/24 12:37 Pulse Oximetry 98 11/04/24 12:37 Oxygen Delivery Me thod Room Air 11/04/24 12:00 MDM - Arrhythmia/Palpitations Medical Decision Making Patient has intermittent palpitations reviewed previous Holter monitor mostly PVCs and PACs had a brief 7 beat run of SVT. They have her on metoprolol. She has no other abnormalities labs and imaging unremarkable EKG does not show any acute changes reviewed as found in the chart. Discussed with the patient continue metoprolol follow-up with primary care monitor blood pressures at home and review log with primary care doctor for adjustment of medications. Medical Records I reviewed the patient's medical records. Lab Data I reviewed the patient's lab results. 11/04/24 09:45 11/04/24 09:45 Radiology Impressions Chest X-Ray 11/04/24 09:38 IMPRESSION: No acute findings. Laboratory Results WBC 5.67 10^3/uL (3.29-11.43) 11/04/24 09:45 RBC 4.69 10^6/uL (3.85-5.65) 11/04/24 09:45 Hgb 12.90 g/dL (11.27-16.99) 11/04/24 09:45 Hct 40.7 % (36-47) 11/04/24 09:45 MCV 86.8 fl (85-98) 11/04/24 09:45 MCH 27.5 pg (27-33) 11/04/24 09:45 MCHC 31.7 g/dL (30-55) 11/04/24 09:45 RDW 14.9 % (12.1-15.1) 11/04/24 09:45 Plt Count 246 10^3/cmm (157-399) 11/04/24 09:45 MPV 9.9 fL (7.4-10.4) 11/04/24 09:45 Neut % (Auto) 53.9 % 11/04/24 09:45 Lymph % (Auto) 32.1 % 11/04/24 09:45 [place] % (Auto) 10.2 % 11/04/24 09:45 Eos % (Auto) 3.2 % 11/04/24 09:45 Baso % (Auto) 0.4 % 11/04/24 09:45 Neut # (Auto) 3.06 10^3/uL (1.8-7.7) 11/04/24 09:45 Lymph # (Auto) 1.8 10^3/uL (0.8-4.8) 11/04/24 09:45 [place] # (Auto) 0.6 10^3/uL (0.2-0.9) 11/04/24 09:45 Eos # (Auto) 0.2 10^3/uL (0.0-0.8) 11/04/24 09:45 Baso # (Auto) 0.0 10^3/uL (0.0-0.1) 11/04/24 09:45 Nucleated RBC % (auto) 0 % 11/04/24 09:45 Nucleated RBCs # 0.0 /100WBC 11/04/24 09:45 Sodium 138 mmol/L (136-145) 11/04/24 09:45 Potassium 4.0 mmol/L (3.5-5.1) 11/04/24 09:45 Chloride 102 mmol/L (98-107) 11/04/24 09:45 Carbon Dioxide 25 mmol/L (22-29) 11/04/24 09:45 Anion Gap 15.0 (5-19) 11/04/24 09:45 BUN 16 mg/dL (8-23) 11/04/24 09:45 Creatinine 0.7 mg/dL (0.5-0.9) 11/04/24 09:45 GFR Calculation 83.0 mL/min (90-130) L 11/04/24 09:45 Glucose 90 mg/dL (65-115) 11/04/24 09:45 Calculated Osmolality 287 mOsm/kg (285-295) 11/04/24 09:45 Calcium 9.7 mg/dL (8.5-10.5) 11/04/24 09:45 Total Bilirubin 0.6 mg/dL (0.15-1.2) 11/04/24 09:45 AST 18 U/L (0-32) 11/04/24 09:45 ALT 11 U/L (0-33) 11/04/24 09:45 Alkaline Phosphatase 104 U/L (35-105) 11/04/24 09:45 Troponin T Baseline < 6 ng/L (0-10) 11/04/24 09:45 Troponin T 120 Minute 6.00 ng/L (0-10) 11/04/24 11:28 Delta Troponin T 0.40034 ABS# (0-10) 11/04/24 11:28 Total Protein 7.6 g/dL (6.6-8.7) 11/04/24 09:45 Albumin 4.2 g/dL (3.5-5.2) 11/04/24 09:45 Globulin 3.4 g/dL (1.3-4.6) 11/04/24 09:45 Urine Color Yellow (Yellow) 11/04/24 09:35 Urine Appearance Clear (CLEAR) 11/04/24 09:35 Urine pH 6.5 (5-7) 11/04/24 09:35 Ur Specific [place] 1.004 (1.005-1.030) L 11/04/24 09:35 Urine Protein Neg (Negative) 11/04/24 09:35 Urine Glucose (UA) Norm (Normal) 11/04/24 09:35 Urine Ketones Negative (Negative) 11/04/24 09:35 Urine Blood Neg (Negative) 11/04/24 09:35 Urine Nitrate Negative (Negative) 11/04/24 09:35 Urine Bilirubin Neg (Negative) 11/04/24 09:35 Urine Urobilinogen 0.2 mg/dL (Negative) 11/04/24 09:35 Ur Leukocyte Esterase Negative (Negative) 11/04/24 09:35 Amorphous Sediment Not Reportable 11/04/24 09:35 All radiology interpretation(s) finalized by discharge EKG Data EKG 1: Interpretation: EKG 11/04/2024 938 normal sinus rhythm with PVCs. Rate 72 AR interval [address] elevation noted Other EKG comments: Chest X-Ray 11/04/24 09:38 IMPRESSION: No acute findings. EKG 2: Interpretation: EKG 11/04/2024 1135 normal sinus rhythm PVCs noted no acute ST changes noted rate of 66 AR interval 181. Other EKG comments: Chest X-Ray 11/04/24 09:38 IMPRESSION: No acute findings. Discharge Plan Discharge Patient Disposition: Home Clinical Impression: Intermittent palpitations Hypertension Qualifiers: Hypertension type: primary hypertension Qualified Code(s): I10 - Essential (primary) hypertension Condition: Stable Prescriptions: No Action multivitamin Tablet 1 tab PO DAILY metoprolol succinate 50 mg tablet extended release 24 hr 50 mg PO DAILY aspirin [Aspir-81] 81 mg Tablet,Delayed Release (Dr/Ec) 81 mg PO DAILY trazodone 100 mg tablet 100 mg PO QPM telmisartan 80 mg tablet 80 mg PO DAILY Discharge Orders: Discharge ED (Routine); Ordered 11/04/24 Ordered By: Saul Carlson Referrals: Hayes Murray FNP [Primary Care Provider] Discharge Diet: Usual diet Discharge Activity: Resume usual activity Patient Instructions: Opioid Safety, Pain Management Activity Restrictions/Additional Instructions: Thank you for choosing [facility] for your healthcare needs today. It is very important that you follow up as instructed or that you return to the Emergency Department should you have concerns or if your condition changes or worsens in any way. You are seen in the emergency room with complaints of elevated blood pressure and palpitations. Your blood pressure was significantly elevated while in the emergency room responded well to help IV hydralazine. Recommend you take your blood pressure monitor to your next doctor's visit to verify it. It is possible that it may not be really accurate you and your home blood pressure readings were significantly lower than what we recorded here. Continue take your current medications as previously prescribed we reviewed your old records the previous Holter monitor showed 1 very short run of SVT only 7 beats and then intermittent PACs and PVCs which are benign. Print Language: Tristanian Coding Level of Care Code ED [employer] for Silvano Kathleen
[2024-11-04 09:51] LABS: Basophils % 0.4 %; Eosinophils # 0.2 10^3/uL (0.0-0.8); Eosinophils % 3.2 %; Hematocrit 40.7 % (36-47); Lymphocytes # 1.8 10^3/uL (0.8-4.8); Lymphocytes % 32.1 %; Mean Corpuscular HGB Conc 31.7 g/dL (30-55); Mean Corpuscular Hemoglobin 27.5 pg (27-33); Mean Corpuscular Volume 86.8 fl (85-98); Mean Platelet Volume 9.9 fL (7.4-10.4); Monocytes # 0.6 10^3/uL (0.2-0.9); Monocytes % 10.2 %; Neutrophils # 3.06 10^3/uL (1.8-7.7); Neutrophils % 53.9 %; Nucleated Red Blood Cells % 0 %; Platelet Count 246 10^3/cmm (157-399); Red Blood Count 4.69 10^6/uL (3.85-5.65); Red Cell Distribution Width 14.9 % (12.1-15.1); White Blood Count 5.67 10^3/uL (3.29-11.43)
[2024-11-04] MEDS: hyDRALAzine 20 mg/mL INJ 1 mL 10 MG IVP (10:03)
[2024-11-04 10:07] LABS: Alanine Aminotransferase 11 U/L (0-33); Albumin Level 4.2 g/dL (3.5-5.2); Alkaline Phosphatase 104 U/L (35-105); Aspartate Amino Transferase 18 U/L (0-32); Blood Urea Nitrogen 16 mg/dL (8-23); Calcium 9.7 mg/dL (8.5-10.5); Carbon Dioxide 25 mmol/L (22-29); Chloride 102 mmol/L (98-107); Creatinine Clr Calc Pharmacy 66.6637; Globulin 3.4 g/dL (1.3-4.6); Glucose 90 mg/dL (65-115); Osmolality Calculated 287 mOsm/kg (285-295); Sodium 138 mmol/L (136-145); Total Bilirubin 0.6 mg/dL (0.15-1.2); Total Protein 7.6 g/dL (6.6-8.7)
[2024-11-04 10:20] LABS: Add Urine Culture? No; Bilirubin Urine Neg (Negative); Blood Urine Neg (Negative); Charge for UA Resulting for Rev; Glucose Urine UA Norm (Normal); Ketones Urine Negative (Negative); Leukocyte Esterase Urine Negative (Negative); Nitrate Urine Negative (Negative); Protein Urine Neg (Negative); Specific Gravity, Urine 1.004 (1.005-1.030); Urine Appearance Clear (CLEAR); Urine Color Yellow (Yellow); Urobilinogen Urine 0.2 mg/dL (Negative); pH Urine 6.5 (5-7)
[2024-11-04 10:59] LABS: Troponin(5th) Baseline < 6 ng/L (0-10)
--- NOTE | 2024-11-04 11:35 | ECG_ITS ---
[facility] Pat Name: Yokasta Vazquez Department: Room: Gender: Female Rn Placement: : 1955 Requested By: Saul Grant Order Number: [id number] Kirit MD: Sebastian Frederick M.D. Measurements Intervals [place] Rate: 66 P: 68 [place]: 181 QRS: 49 QRSD: 104 T: 49 QT: 415 QTc: 436 Interpretive Statements SINUS RHYTHM WITH OCCASIONAL VENTRICULAR PREMATURE COMPLEXES NONSPECIFIC T-WAVE ABNORMALITY Compared to ECG 11/04/2024 09:38:29 T-wave abnormality now present ST (T wave) deviation no longer present Electronically Signed On 11-05-2024 10:22:47 CDT by Sebastian Frederick M.D. [email or web address] [id number]
[2024-11-04 11:55] LABS: Troponin 5 2HR Delta 0.00001 ABS# (0-10)
== END 2024-11-04 12:39 | disposition home or self-care (01) ==
PROVIDERS: Emergency Provider Family Medicine; PCP Nurse Practitioner Family
DX: R00.2 Palpitations (principal); I10 Essential (primary) hypertension; Z79.82 Long term (current) use of aspirin
CPT/HCPCS: 36415; 71045; 80053; 81003; 84484; 85025; 93005; 96374; 99285; J0360

== ENCOUNTER → 2024-11-27 10:25 | Outpatient (BNVA) | payer MEDICARE, OTHER, SELFPAY | PROVIDERS: PCP Nurse Practitioner Family; Visit Provider Nurse Practitioner Family | DX: D23.39 Other benign neoplasm of skin of other parts of face (principal); L82.1 Other seborrheic keratosis; D18.01 Hemangioma of skin and subcutaneous tissue; L81.4 Other melanin hyperpigmentation; L57.8 Other skin changes due to chronic exposure to nonionizing radiation; X32.XXXA Exposure to sunlight, initial encounter; Z12.83 Encounter for screening for malignant neoplasm of skin; D48.5 Neoplasm of uncertain behavior of skin | CPT/HCPCS: 11102; 99203 ==

== ENCOUNTER → 2025-01-28 14:28 | Outpatient (BNVA) | payer MEDICARE, OTHER, SELFPAY | PROVIDERS: PCP Family Medicine; Visit Provider Internal Medicine | DX: R00.2 Palpitations (principal); I10 Essential (primary) hypertension; G47.33 Obstructive sleep apnea (adult) (pediatric); Z99.89 Dependence on other enabling machines and devices; Z87.891 Personal history of nicotine dependence; R07.9 Chest pain, unspecified | CPT/HCPCS: 93005; 99204 ==

== ENCOUNTER 2025-02-28 08:45 | Outpatient (CLI) | payer MEDICARE, OTHER, SELFPAY ==
--- NOTE | 2025-02-28 09:14 | NMCV_ITS ---
NM hiren perf SPECT r/s* [id number] Yokasta Vazquez Age: 70 Gender: F : 1955 Exam Date: 02/28/2025 09:59 Ordering Phys: Sebastian Frederick M.D ([email or web address]) Technologist: GABE Fernandez Exam Location: [facility] Indications: CP STRESS TEST [facility] IMAGE PROTOCOL Rest/Stress 1 Exercise Day Radiopharmaceutical Dose (mCi) Administration Site Administered by Rest: Tc-99m 10.7 IV GABE Fernandez Sestamibi Stress:Tc-99m 32.9 IV GABE Chong Sestamibi Rest: 28-Feb-2025 60 Discovery 630 Stress: 28-Feb-2025 15 Discovery 630 Radiopharmaceutical was injected at 90 % maximum heart rate. Images obtained in supine and prone position. SPECT RESULTS Technical Quality: Good Raw Data Analysis: Normal Image Corrections: No attenuation or motion correction applied Summed Stress Score: 0 Summed Rest Score: 1 Summed Difference Score: 0 PERFUSION FINDINGS SPECT images demonstrate homogeneous tracer distribution throughout the myocardium. FUNCTIONAL RESULTS (calculated via Gated SPECT) Stress Image LV EF (%): 77 Stress EDV (mL):79 TID: 0.88 Stress ESV (mL):18 FUNCTIONAL FINDINGS: There is normal left ventricular systolic function. IMPRESSIONS Myocardial perfusion imaging is normal. Yoshi Chan MD, FACC (Electronically Signed) Final Date: 28 February 2025 12:56 S
--- NOTE | 2025-02-28 09:14 | ECG_ITS ---
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 Interpretive Statements Procedure: The patient was exercised by the Matt protocol. Vital signs and ECG findings: The baseline blood pressure was 158/81 with a heart rate of 82. The patient exercised for 5 minutes and 1 second which is average for the patient's age. Maximum heart rate achieved was 142 bpm which is 94% of maximal predicted heart rate achieving 7 METS of exercise. Peak blood pressure was 198/89. Blood pressure in recovery was 190/77 with a heart rate of 90 bpm. The baseline EKG showed normal sinus rhythm with nonspecific T wave flattening. Stress EKG revealed minor ST depression that did not meeting strict criteria for ischemia. CONCLUSION: 1. Exercise capacity for age was good. 2. Heart rate response was appropriate. 3. Blood pressure response was appropriate. 4. No symptoms of ischemia during stress test. 5. Stress test without evidence of ischemia. Electronically Signed On 02-28-2025 14:40:08 CDT by Yoshi Chan M.D. [id number]
[2025-02-28 09:16] VITALS: BMI 29.9
[2025-02-28 11:18] VITALS: BP 190/77; PULSE 92
== END 2025-02-28 08:46 | disposition home or self-care (01) ==
LOC: CDL 08:47
PROVIDERS: PCP Family Medicine; Visit Provider Internal Medicine
DX: R07.9 Chest pain, unspecified (principal); R06.02 Shortness of breath
CPT/HCPCS: 36415; 78452; 93017; 93306; 96374; A9500

== ENCOUNTER → 2025-03-21 10:04 | Outpatient (BNVA) | payer MEDICARE, OTHER, SELFPAY | PROVIDERS: PCP Family Medicine; Visit Provider Nurse Practitioner Family | DX: D23.39 Other benign neoplasm of skin of other parts of face (principal); L81.4 Other melanin hyperpigmentation; L57.8 Other skin changes due to chronic exposure to nonionizing radiation; X32.XXXA Exposure to sunlight, initial encounter; Z08 Encounter for follow-up examination after completed treatment for malignant neoplasm; Z85.828 Personal history of other malignant neoplasm of skin | CPT/HCPCS: 99213 ==

== ENCOUNTER → 2025-05-28 15:10 | Outpatient (BNVA) | payer MEDICARE, OTHER, SELFPAY | PROVIDERS: PCP Family Medicine; Visit Provider Nurse Practitioner Family | DX: R00.2 Palpitations (principal); I10 Essential (primary) hypertension; G47.33 Obstructive sleep apnea (adult) (pediatric); Z99.89 Dependence on other enabling machines and devices; I49.3 Ventricular premature depolarization; F41.9 Anxiety disorder, unspecified; Z87.891 Personal history of nicotine dependence | CPT/HCPCS: 99213 ==